=== PATIENT | female | born 1945 | race Caucasian/White ===

== ENCOUNTER 2018-11-28 00:29 | Outpatient (CLI) | payer MEDICARE, OTHER, SELFPAY ==
--- NOTE | 2018-11-28 11:46 | DI.MAMMO_ITS ---
SYMPTOM/DIAGNOSIS: SCREENING Z13=2.31 MAMMOGRAMS: Mammograms were interpreted according to the usual protocol including computer analysis with CAD system, tomosynthesis and C view imaging. Comparison with prior examinations. Breast density category C. No suspicious masses or microcalcifications are seen. There is no definite evidence of malignancy. IMPRESSION: Category 1, negative mammogram. Routine screening is recommended. Breast density category C. MQSA ASSESSMENT OF FINDINGS: Negative. Category 1. Patient will receive a letter notifying them of these results. Bi-RADS category C. The breasts are heterogeneously dense, which may obscure small masses.
== END 2018-11-28 00:49 ==
PROVIDERS: PCP Family Medicine; Visit Provider Internal Medicine
DX: Z12.31 Encounter for screening mammogram for malignant neoplasm of breast (principal)
CPT/HCPCS: 77063; 77067

== ENCOUNTER 2020-03-13 01:47 | Outpatient (CLI) | payer MEDICARE, OTHER, SELFPAY ==
--- NOTE | 2020-03-13 | DI.MAMMO_ITS ---
EXAM: MG MAMMO SCREENING CLINICAL HISTORY: SCREENING,Z12.31 TECHNIQUE: Bilateral full field digital CC and MLO mammographic images were obtained with 3D tomosyn thesis and utilizing computer aided detection (CAD). COMPARISON: Available for comparison. FINDINGS: Masses/Architectural Distortion: There is a focal asymmetric density in the upper central right breas t on the MLO view. Microcalcifications: No suspicious pleomorphic-type are seen. Skin Thickening/Nipple Retraction: None. IMPRESSION: 1. Asymmetric density in the upper central right breast on the MLO view. 2. Further evaluation with additional views of the right breast and ultrasound are recommended for fu rther evaluation. BI-RADS Category 0 - Assessment Incomplete: Need additional imaging evaluation Breast Density - Category C - Heterogeneously dense The mammogram demonstrates the patient's breast tissue is dense. Dense breast tissue is very common a nd is not abnormal but dense breast tissue can make it harder to find cancer on a mammogram. Also, de nse breast tissue may increase their breast cancer risk. This information about the result of the [facility] mogram report was provided to the patient to raise their awareness. Use this report when you speak wi th the patient about their risks for breast cancer, which includes their family history. At that time , you may recommend for more screening tests (Ultrasound or MRI) as they might be useful based on the ir risk. A negative radiographic report should not delay biopsy if a dominant or clinically suspicious mass is present. Up to ten percent of cancers are not identified on mammography. A negative report may reinforce clinical impression. Adenosis and dense breasts may obscure an underlying neoplasm. False positive reports average 6 to 10%. Patient will receive a letter notifying them of these results.
== END 2020-03-13 02:07 ==
PROVIDERS: PCP Family Medicine; Visit Provider Internal Medicine
DX: Z12.31 Encounter for screening mammogram for malignant neoplasm of breast (principal); R92.8 Other abnormal and inconclusive findings on diagnostic imaging of breast
CPT/HCPCS: 77063; 77067

== ENCOUNTER 2020-03-15 03:27 | Outpatient (CLI) | payer MEDICARE, OTHER, SELFPAY ==
--- NOTE | 2020-03-15 | DI.US_ITS ---
EXAM: MG MAMMO SCREEN CALL BACK UNI and U/S breast RT leg CLINICAL HISTORY: F/U MAMMO,FOCAL ASYMMETRIC DENSITY UPPER [place] RT BREAST ON MLO. TECHNIQUE: Craniocaudal and mediolateral oblique Full Field Digital Mammography views of the right b reast with Computer Aided Diagnosis followed by Tomosynthesis and right breast ultrasound. COMPARISON: Priors available for comparison. FINDINGS: Mammography/Tomosynthesis: Masses/Architectural Distortion: None seen. Microcalcifictions: No suspicious pleomorphic-type are seen. Skin Thickening/Nipple Retraction: None. Right breast US: Echotexture: Normal appearance of the glandular tissue. Shadowing: No suspicious foci. Cyst: None. Solid lesions: None seen. Ductal dilation: None. IMPRESSION: 1. No evidence of malignancy is noted. 2. A six-month follow-up right mammogram is requested for re-evaluation. 3. The findings were discussed with the patient on the date of the examination. BI-RADS Category 3 - 6 month - Probably Benign Finding: Recommend follow-up mammography in 6 months Breast Density - Category C - Heterogeneously dense The mammogram demonstrates the patient's breast tissue is dense. Dense breast tissue is very common a nd is not abnormal but dense breast tissue can make it harder to find cancer on a mammogram. Also, de nse breast tissue may increase their breast cancer risk. [facility] was provided to the patient to raise their awareness. Use this report when you speak wi th the patient about their risks for breast cancer, which includes their family history. At that time , you may recommend for more screening tests (Ultrasound or MRI) as they might be useful based on the ir risk. A negative radiographic report should not delay biopsy if a dominant or clinically suspicious mass is present. Up to ten percent of cancers are not identified on mammography. A negative report may reinforce clinical impression. Adenosis and dense breasts may obscure an underlying neoplasm. False positive reports average 6 to 10%. Patient will receive a letter notifying them of these results.
== END 2020-03-15 03:47 ==
PROVIDERS: PCP Family Medicine; Visit Provider Internal Medicine
DX: R92.8 Other abnormal and inconclusive findings on diagnostic imaging of breast (principal); R92.2 Inconclusive mammogram
CPT/HCPCS: 76642; 77063; 77067

== ENCOUNTER → 2020-09-12 13:38 | Outpatient (BNVA) | payer MEDICARE, OTHER, SELFPAY | PROVIDERS: PCP Internal Medicine; Referring Provider Internal Medicine; Visit Provider Psychiatry & Neurology Neurology | DX: G25.0 Essential tremor (principal); M48.061 Spinal stenosis, lumbar region without neurogenic claudication; R41.3 Other amnesia; R29.6 Repeated falls; M54.5 Low back pain; I10 Essential (primary) hypertension; E11.9 Type 2 diabetes mellitus without complications | CPT/HCPCS: 99205; G2212 ==

== ENCOUNTER 2020-09-19 02:00 | Outpatient (CLI) | payer MEDICARE, OTHER, SELFPAY ==
--- NOTE | 2020-09-19 | DI.US_ITS ---
Exam(s) MG MAMMO DIAGNOSTIC UNI US BREAST RT COMPLETE EXAM: MG MAMMO DIAGNOSTIC UNI-RIGHT COMPLETE RIGHT BREAST ULTRASOUND CLINICAL HISTORY: F/U ABNL FINDINGS ON RT BREAST, R92.8. TECHNIQUE: Unilateral spot mammographic images were obtained with 3D Tomosynthesistechnique and util izing computer aided detection (CAD). ALSO COMPLETE RIGHT BREAST ULTRASOUND INCLUDING ALL 4 QUADRANTS WELL THE RETROAREOLAR REGION AN D RIGHT AXILLA COMPARISON: Prior mammograms dating back to 2010, the most recent being MARCH 2020. Ultrasound N 2019 was also reviewed FINDINGS: Today's diagnostic right breast mammogram reveals the previously described nodular density to be less evident. However, 3D imaging today revealed a new 5 x 4 millimeter nodule in the upper inner quadra nt and this persisted on additional spot compression view performed today. We therefore proceeded with complete right breast ultrasound. Complete right breast ultrasound revealed a solitary finding which is at 2 o'clock position and has t he appearance of either a septated microcyst or lymph node measuring 5 x 3 millimeters, most probably corresponding to this new nodule on the mammogram. There are no other focal ultrasound findings in all 4 quadrants nor in the retroareolar region. No significant findings in the right axilla. IMPRESSION: 1. New 5 x 4 mm right breast nodule as described above which appears to be either septated microcyst or benign-appearing lymph node on ultrasound which was performed immediately following today's diagno stic right breast mammogram. Appropriate follow-up is repeat breast ultrasound at time for next mammogram which is in 6 months fro m the present date.. The patient was informed of the findings and follow-up recommendations [facility]. BI-RADS Category 3 - 6 month - Probably Benign Finding: Recommend follow-up mammography and ultrasoun d in 6 months Breast Density - Category B - Scattered areas of fibroglandular density Breast density Category C or D implies that the patient has dense breast tissue. Dense breast tissue can make it harder to find cancer on a mammogram. Dense breast tissue is also associated with an incr eased risk of breast cancer. This information about the result of the mammogram report was provided to the patient to raise their awareness. Use this report when you speak with the patient about their risks for breast cancer, which includes their family history. At that time, you may recommend additional screening tests (Ultrasoun d or MRI) as these tests may add significant information. A negative radiographic report should not delay biopsy if a dominant or clinically suspicious mass is present. Up to ten percent of cancers are not identified on mammography. A negative report may reinforce clinical impression. Adenosis and dense breasts may obscure an underlying neoplasm. False positive reports average 6 to 10%. Patient will receive a letter notifying them of these results.
== END 2020-09-19 02:20 ==
PROVIDERS: PCP Internal Medicine; Visit Provider Internal Medicine
DX: R92.8 Other abnormal and inconclusive findings on diagnostic imaging of breast (principal)
CPT/HCPCS: 76642; 77061; 77065; G0279

== ENCOUNTER → 2020-11-14 12:47 | Outpatient (BNVA) | payer MEDICARE, OTHER, SELFPAY | PROVIDERS: PCP Internal Medicine; Referring Provider Internal Medicine; Visit Provider Psychiatry & Neurology Neurology | DX: R41.3 Other amnesia (principal); G25.0 Essential tremor; R29.6 Repeated falls; M48.061 Spinal stenosis, lumbar region without neurogenic claudication; I10 Essential (primary) hypertension; E78.5 Hyperlipidemia, unspecified; E11.9 Type 2 diabetes mellitus without complications; K21.9 Gastro-esophageal reflux disease without esophagitis; Z87.820 Personal history of traumatic brain injury | CPT/HCPCS: 99215 ==

== ENCOUNTER → 2021-03-20 14:35 | Outpatient (BNVA) | payer MEDICARE, OTHER, SELFPAY | PROVIDERS: PCP Internal Medicine; Visit Provider Psychiatry & Neurology Neurology | DX: R41.3 Other amnesia (principal); R29.6 Repeated falls; M48.061 Spinal stenosis, lumbar region without neurogenic claudication; G25.0 Essential tremor | CPT/HCPCS: 99214 ==

== ENCOUNTER 2021-03-31 00:09 | Outpatient (CLI) | payer MEDICARE, OTHER, SELFPAY ==
--- NOTE | 2021-03-31 13:30 | DI.MAMMO_ITS ---
Exam(s) MAMMO DIAGNOSTIC UNI EXAM: MAMMO DIAGNOSTIC UNI CLINICAL HISTORY: ABNL FINDINGS PRIOR IMAGING R92.8. TECHNIQUE: Unilateral spot mammographic images were obtained with 3D tomosynthesis technique and uti lizing computer aided detection (CAD). COMPARISON: Prior mammograms dating back to 2010, the most recent being March 2020 and the September 19 ultrasound August 2020 was also reviewed. FINDINGS: Previously described density towards the medial aspect of the right breast is unchanged mammographica lly. Ultrasound of the right breast performed following this mammogram today also revealed stable findings . Please see that separate report. IMPRESSION: As above. Appropriate follow-up is to keep this patient yearly mammogram schedule, this implying jazmin t her next bilateral mammogram would be in 6 months from now. The patient was informed of the findings and follow-up recommendations prior to leaving the [facility] today. BI-RADS Category 3 - 6 month - Probably Benign Finding: Recommend follow-up mammography in 6 months Breast Density - Category B - Scattered areas of fibroglandular density Breast density Category C or D implies that the patient has dense breast tissue. Dense breast tissue can make it harder to find cancer on a mammogram. Dense breast tissue is also associated with an incr eased risk of breast cancer. This information about the result of the mammogram report was provided to the patient to raise their awareness. Use this report when you speak with the patient about their risks for breast cancer, which includes their family history. At that time, you may recommend additional screening tests (Ultrasoun d or MRI) as these tests may add significant information. A negative radiographic report should not delay biopsy if a dominant or clinically suspicious mass is present. Up to ten percent of cancers are not identified on mammography. A negative report may reinforce clinical impression. Adenosis and dense breasts may obscure an underlying neoplasm. False positive reports average 6 to 10%. Patient will receive a letter notifying them of these results.
--- NOTE | 2021-03-31 14:00 | DI.US_ITS ---
Exam(s) US BREAST RT COMPLETE EXAM: US BREAST RT COMPLETE CLINICAL HISTORY: ABNL FINDING PRIOR IMAGING R92.8. TECHNIQUE: Complete ultrasound of the right breast was performed including all 4 quadrants, the retr oareolar region, and the ipsilateral axilla. COMPARISON: Prior mammograms were reviewed. Prior ultrasound examination of 09/19/2020 was reviewed. Today's spot compression mammographic views were reviewed FINDINGS: Findings are unchanged. Again noted is the previously described 5 x 4 millimeter finding at the 2 o' clock position which has appearance of either septated microcyst or benign lymph node. This is uncha nged in size and configuration. There are no additional ultrasound findings in all 4 quadrants. No significant ipsilateral right axillary adenopathy. IMPRESSION: Stable 2 o'clock position 5 x 4 millimeter finding, unchanged from 09/19/2020 and either septated jesse rocyst or benign-appearing lymph node on ultrasound. This probably corresponds to the finding on the mammogram. Appropriate follow-up is to keep this patient on a yearly mammogram schedule, this implying that her next bilateral breast imaging would be in 6 months, with earlier imaging if a self detected breast ch mekhi is noted.. BI-RADS Category 3 - 6 month - Probably Benign Finding: Recommend follow-up mammography in 6 months Breast Density - Category B - Scattered areas of fibroglandular density Breast density Category C or D implies that the patient has dense breast tissue. Dense breast tissue can make it harder to find cancer on a mammogram. Dense breast tissue is also associated with an incr eased risk of breast cancer. This information about the result of the mammogram report was provided to the patient to raise their awareness. Use this report when you speak with the patient about their risks for breast cancer, which includes their family history. At that time, you may recommend additional screening tests (Ultrasoun d or MRI) as these tests may add significant information. A negative radiographic report should not delay biopsy if a dominant or clinically suspicious mass is present. Up to ten percent of cancers are not identified on mammography. A negative report may reinforce clinical impression. Adenosis and dense breasts may obscure an underlying neoplasm. False positive reports average 6 to 10%. Patient will receive a letter notifying them of these results.
== END 2021-03-31 00:29 ==
PROVIDERS: PCP Internal Medicine; Visit Provider Internal Medicine
DX: R92.8 Other abnormal and inconclusive findings on diagnostic imaging of breast (principal)
CPT/HCPCS: 76642; 77061; 77065; G0279

== ENCOUNTER → 2021-05-22 12:50 | Outpatient (BNVA) | payer MEDICARE, OTHER, SELFPAY | PROVIDERS: PCP Internal Medicine; Referring Provider Internal Medicine; Visit Provider Psychiatry & Neurology Neurology | DX: R41.3 Other amnesia (principal); R29.6 Repeated falls; M48.061 Spinal stenosis, lumbar region without neurogenic claudication; G25.0 Essential tremor; I10 Essential (primary) hypertension; E11.9 Type 2 diabetes mellitus without complications; R19.7 Diarrhea, unspecified | CPT/HCPCS: 99214 ==

== ENCOUNTER 2021-05-22 14:05 | Emergency (ER) | payer MEDICARE, OTHER, SELFPAY ==
[2021-05-22] VITALS (23 sets, daily range): BP systolic 101–120; BP diastolic 39–80; PULSE 50–65; RESP 10–23; TEMP 36.7; O2SAT 92–98
--- NOTE | 2021-05-22 14:00 | RT.EKG_ITS ---
APPROVED REPORT Exam: Resting ECG Reason for Exam: weakness Patient Location: E HR:51 bpm ECG Measurements Heart Rate 51 AXIS TN 123 P -5 QRSd 83 QRS -15 QT 440 T 4 QTc 405 Conclusion Sinus bradycardia...rate< 60 Low voltage, extremity and precordial leads...extremity<0.5mV, precordial<1.0mV Consider anterior infarct...Q >30mS in V2-V5
--- NOTE | 2021-05-22 14:15 | DI.CT_ITS ---
Exam(s) CT HEAD WO EXAM: CT HEAD WO CLINICAL HISTORY: fall/head injury. TECHNIQUE: Imaging Protocol: Axial computed tomography images with coronal and sagittal reformatted images were created and reviewed COMPARISON: CR XR CHEST 1V IN DI DEPT from 05/22/2021 FINDINGS: There are no skull fractures nor fluid in the visualized paranasal sinuses. There is no evidence of intracranial hemorrhage, mass effect, or shift of midline structures. There are no extra-axial fluid collections. The ventricles are not enlarged or shifted and there is no blo od within the ventricular system nor within the basal cisterns. Mild periventricular white findings consistent with chronic small vessel disease IMPRESSION: No acute intracranial findings on this noninfused CT scan of the brain. No skull fractures. RADIATION DOSE DELIVERED: 736.64mGy.cm Total DLP DATA REPOSITORY: All CT scans at this facility are submitted to the National Radiology Data Registry (NRDR) Dose Index Registry (DIR) with the [employer] ([employer]). RADIATION OPTIMIZATION: All CT scans at this facility use at least one of these dose optimization te chniques: automated exposure control; mA and/or kV adjustment per patient size (includes targeted exa ms where dose is matched to clinical indication); or iterative reconstruction.
--- NOTE | 2021-05-22 14:20 | DI.RAD_ITS ---
Exam(s) XR CHEST 1V IN DI DEPT EXAM: XR CHEST 1V IN DI DEPT CLINICAL HISTORY: weakness. TECHNIQUE: 2D digital imaging was performed. COMPARISON: No exams were available for comparison FINDINGS: Heart size is upper normal. The mediastinum is not widened. Lungs are clear. No infiltrates nor obvious pleural effusions. IMPRESSION: No acute pulmonary findings on this single AP portable view of the chest. DATA REPOSITORY: RADIATION DOSE DELIVERED: All CT scans at this facility use at least one of these dose optimization techniques: automated exposure control; mA and/or kV adjustment per patient size (includes targeted e xams where dose is matched to clinical indication); or iterative reconstruction.
--- NOTE | 2021-05-22 14:24 | ED.GENADUL_ITS ---
Discharge Plan Disposition Patient Disposition: HOME W/HOME HEALTH SERVICE Condition: Stable Discharge Details Clinical Impression: Dehydration, Falls Primary Care Provider: Mal Avery ED Provider: Starla Ricks Home Meds and New Rx's Prescriptions: Continued aspirin [Adult Aspirin Regimen] 81 mg tablet,delayed release (DR/EC) 81 mg PO DAILY RF: 0 lisinopril 10 mg tablet 10 mg PO DAILY RF: 0 gabapentin 300 mg capsule 300 mg PO QHS RF: 0 atorvastatin 10 mg tablet 10 mg PO QHS RF: 0 acetaminophen 500 mg capsule 1,000 mg PO BID PRNRF: 0 divalproex 500 mg tablet,delayed release (DR/EC) 1,000 mg PO BID RF: 0 pantoprazole 40 mg tablet,delayed release (DR/EC) 40 mg PO BID RF: 0 divalproex 250 mg tablet,delayed release (DR/EC) 500 mg PO BID RF: 0 magnesium oxide 400 mg magnesium tablet 400 mg PO QID RF: 0 zinc 50 mg tablet 50 mg PO DAILY RF: 0 B-complex with vitamin C Capsule 1 cap PO DAILY RF: 0 Culturelle 10 billion cell capsule 1 cap PO DAILY RF: 0 cholecalciferol (vitamin D3) 50 mcg (2,000 unit) capsule 50 mcg PO DAILY RF: 0 citalopram [Celexa] 20 mg tablet 20 mg PO DAILY RF: 0 sucralfate [Carafate] 1 gram tablet 1 g PO QACHS RF: 0 nystatin 100,000 unit/mL suspension 5 ml PO QID RF: 0 albuterol sulfate 90 mcg/actuation HFA aerosol inhaler 2 puff inhalation Q4H PRNRF: 0 amlodipine 2.5 mg tablet 2.5 mg PO DAILY RF: 0 calcium carbonate-vitamin D3 600 mg-10 mcg (400 unit) capsule 2 cap PO DAILY RF: 0 Discharge Instructions Instructions: Dehydration (ED) Additional Instructions: you have been referred to home health for nursing evaluation and monitoring, medication oversight. PT/OT for home safety evaluation and management, certified medical biller for routine evaluation and management. drink 6-8 glasses of water daily to stay well hydrated. Referrals: Mal Avery [Primary Care Provider] - Discharge Data Discharge Date/Time-TO BE ENTERED AT DEPARTURE: 05/22/21 17:05 Medical Decision Making <WILSON Gomez - Last Filed: 05/27/21 08:14> 75-year-old female presenting to the ER for hypotension, diarrhea, generalized weakness, fatigue, lack of appetite, concern for dehydration. Upon presentation her blood pressure is 112/39, she does appear slightly dry, afebrile, O2 sat is 94% on room air. Abdomen is soft, nontender. Plan to obtain IV access, give IV fluid, 1 L, obtain head CT given her fall yesterday, stool sample for C. difficile, routine screening laboratory values including a TSH, urine, single troponin and EKG. While the patient was in the radiology department, I had a very candid conversation with her . He works 5 days a week and has concerns of caring for her at home by himself. It sounds as though she does have some home health coming in on Mondays. He is torn whether potential placement to a rehab facility is appropriate versus continuing to care for her at home. I have requested that our care management team come talk with the patient and her to discuss additional options Initial laboratory values reveal a white blood cell count of 2.37 hemoglobin 10.9 hematocrit 33.4 platelet count 82. Unfortunately I do not have any baseline laboratory, but will contact her primary care office to see if we can get some baseline labs. Her electrolytes unremarkable, BUN 45 creatinine 1.9 with a GFR of 25.77. Again do not know the baseline. Patient is receiving 1 L IV fluid. Her glucose is 73. Magnesium 2.5. TSH 1.88. COVID negative Contacted by our radiologist, negative head CT and chest x-ray. Patient receiving 1 L IV fluid. Remains hemodynamically stable. Awaiting urinalysis, stool sample, care management consultation, baseline laboratory values from her primary care provider, and final disposition. Medical Records Medical records reviewed: Yes I reviewed the patient's medical records. Imaging Data Radiologic Study: Attestation: I personally reviewed and interpreted this imaging study as follows: Imaging: CT Scan Radiologist's impression: EXAM: CT HEAD WO CLINICAL HISTORY: fall/head injury. TECHNIQUE: Imaging Protocol: Axial computed tomography images with coronal and sagittal reformatted images were created and reviewed COMPARISON: CR XR CHEST 1V IN DI DEPT from 05/22/2021 FINDINGS: There are no skull fractures nor fluid in the visualized paranasal sinuses. There is no evidence of intracranial hemorrhage, mass effect, or shift of midline structures. There are no extra-axial fluid collections. The ventricles are not enlarged or shifted and there is no blood within the ventricular system nor within the basal cisterns. Mild periventricular white findings consistent with chronic small vessel disease IMPRESSION: No acute intracranial findings on this noninfused CT scan of the brain. No skull fractures. Radiologic Study #2: Attestation: I personally reviewed and interpreted this imaging study as follows: Imaging: X-Ray Radiologist's impression: Exam(s) XR CHEST 1V IN DI DEPT EXAM: XR CHEST 1V IN DI DEPT CLINICAL HISTORY: weakness. TECHNIQUE: 2D digital imaging was performed. COMPARISON: No exams were available for comparison FINDINGS: Heart size is upper normal. The mediastinum is not widened. Lungs are clear. No infiltrates nor obvious pleural effusions. IMPRESSION: No acute pulmonary findings on this single AP portable view of the chest. Lab Data Lab results reviewed: Yes I reviewed the patient's lab results. Labs: Laboratory Tests Range/Units 05/22/21 05/22/21 05/22/21 14:45 14:45 14:45 WBC (4.4-10.8) 10^3/uL 2.37 L RBC (3.93-5.22) 10^6/uL 3.36 L Hgb (11.2-15.7) g/dL 10.9 L Hct (36.0-46.0) % 33.4 L MCV (80-95) fL 99.4 H MCH (27.0-33.0) pg 32.4 MCHC (32.0-36.0) % 32.6 RDW (11.7-14.6) % 12.9 Plt Count (130-400) 10^3/uL 82 L MPV (8.0-11.0) fL 9.4 Immature Gran % 0.4 Neutrophils % 54.1 Lymphocytes % 34.6 Monocytes % 8.4 Eosinophils % 1.7 Basophils % 0.8 Nucleated RBC % % 0 Absolute Neutrophils (1.2-6.7) 10^3/uL 1.28 Absolute Lymphocytes (1.2-3.4) 10^3/uL 0.82 L Absolute Monocytes (0.1-0.8) 10^3/uL 0.20 Absolute Eosinophils (0.0-0.7) 10^3/uL 0.04 Absolute Basophils (0.0-0.2) 10^3/uL 0.02 Sodium (136-145) mmol/L 136 Potassium (3.5-5.1) mmol/L 4.8 Chloride (98-107) mmol/L 99 Carbon Dioxide (21.0-32.0) mmol/L 25.8 Anion Gap (3-11) mmol/L 11.2 H BUN (7-18) mg/dL 45 H Creatinine (0.55-1.02) mg/dL 1.9 H Estimated GFR/1.73 m2 (mL/min/1.73m2) 25.77 Glucose (74-106) mg/dL 73 L Calcium (8.5-10.1) mg/dL 10.0 Magnesium (1.8-2.4) mg/dL 2.5 H Total Bilirubin (0.2-1.0) mg/dL 0.5 AST (15-37) U/L 30 ALT (14-59) U/L 18 Alkaline Phosphatase (46-116) U/L 52 Total Protein (6.4-8.2) g/dL 7.2 Albumin (3.4-5.0) g/dL 3.7 TSH (0.36-3.74) uIU/mL Valproic Acid ( - 150) ug/mL 98.8 COVID-19 Source SARS-CoV-2 (PCR) (Negative) Range/Units 05/22/21 05/22/21 14:45 14:55 WBC (4.4-10.8) 10^3/uL RBC (3.93-5.22) 10^6/uL Hgb (11.2-15.7) g/dL Hct (36.0-46.0) % MCV (80-95) fL MCH (27.0-33.0) pg MCHC (32.0-36.0) % RDW (11.7-14.6) % Plt Count (130-400) 10^3/uL MPV (8.0-11.0) fL Immature Gran % Neutrophils % Lymphocytes % Monocytes % Eosinophils % Basophils % Nucleated RBC % % Absolute Neutrophils (1.2-6.7) 10^3/uL Absolute Lymphocytes (1.2-3.4) 10^3/uL Absolute Monocytes (0.1-0.8) 10^3/uL Absolute Eosinophils (0.0-0.7) 10^3/uL Absolute Basophils (0.0-0.2) 10^3/uL Sodium (136-145) mmol/L Potassium (3.5-5.1) mmol/L Chloride (98-107) mmol/L Carbon Dioxide (21.0-32.0) mmol/L Anion Gap (3-11) mmol/L BUN (7-18) mg/dL Creatinine (0.55-1.02) mg/dL Estimated GFR/1.73 m2 (mL/min/1.73m2) Glucose (74-106) mg/dL Calcium (8.5-10.1) mg/dL Magnesium (1.8-2.4) mg/dL Total Bilirubin (0.2-1.0) mg/dL AST (15-37) U/L ALT (14-59) U/L Alkaline Phosphatase (46-116) U/L Total Protein (6.4-8.2) g/dL Albumin (3.4-5.0) g/dL TSH (0.36-3.74) uIU/mL 1.88 Valproic Acid ( - 150) ug/mL COVID-19 Source Nasal/Nares SARS-CoV-2 (PCR) (Negative) Negative ECG Data Attestation: I personally reviewed and interpreted this ECG (s) as follows: Interpretation: Please see official report by Dr. Mueller. Sinus bradycardia, ventricular rate of 51, no STEMI. <Starla Ricks NP - Last Filed: 05/22/21 18:59> care of patient received and chart reviewed. chart from [facility] reviewed. patient medically screened with no acute medical condition noted that warrants inpatient admission. case management is consulted and referral will be placed for home health services. she should be closely followed by her pcp and is scheduled for colonoscopy. her reports she stools 1+-2 times daily. her blood pressure has been stable during her entire stay, with sbp over 100, HR 50-60's. Medical Records Medical records reviewed: Yes I reviewed the patient's medical records. Medical records narrative: wbc 4.6, hgb 10.9, hct 33.5 plt 91 cre 1.4 tsh 0.75 Lab Data Lab results reviewed: Yes I reviewed the patient's lab results. Lab results narrative: Laboratory Results - last 24 hr 05/22/21 05/22/21 05/22/21 14:45 14:45 14:45 WBC 2.37 L RBC 3.36 L Hgb 10.9 L Hct 33.4 L MCV 99.4 H MCH 32.4 MCHC 32.6 RDW 12.9 Plt Count 82 L MPV 9.4 Immature Gran % 0.4 Neutrophils % 54.1 Lymphocytes % 34.6 Monocytes % 8.4 Eosinophils % 1.7 Basophils % 0.8 Nucleated RBC % 0 Absolute Neutrophils 1.28 Absolute Lymphocytes 0.82 L Absolute Monocytes 0.20 Absolute Eosinophils 0.04 Absolute Basophils 0.02 Sodium 136 Potassium 4.8 Chloride 99 Carbon Dioxide 25.8 Anion Gap 11.2 H BUN 45 H Creatinine 1.9 H Estimated GFR/1.73 m2 25.77 Glucose 73 L Calcium 10.0 Magnesium 2.5 H Total Bilirubin 0.5 AST 30 ALT 18 Alkaline Phosphatase 52 Troponin I Total Protein 7.2 Albumin 3.7 TSH Valproic Acid 98.8 COVID-19 Source SARS-CoV-2 (PCR) 05/22/21 05/22/21 05/22/21 14:45 14:45 14:55 WBC RBC Hgb Hct MCV MCH MCHC RDW Plt Count MPV Immature Gran % Neutrophils % Lymphocytes % Monocytes % Eosinophils % Basophils % Nucleated RBC % Absolute Neutrophils Absolute Lymphocytes Absolute Monocytes Absolute Eosinophils Absolute Basophils Sodium Potassium Chloride Carbon Dioxide Anion Gap BUN Creatinine Estimated GFR/1.73 m2 Glucose Calcium Magnesium Total Bilirubin AST ALT Alkaline Phosphatase Troponin I < 50 Total Protein Albumin TSH 1.88 Valproic Acid COVID-19 Source Nasal/Nares SARS-CoV-2 (PCR) Negative HPI <WILSON Gomez - Last Filed: 05/27/21 08:14> General Mode of arrival: wheelchair . Date/Time Provider Initiated Documentation: 05/22/21 14:06 . Limitations to Documentation: altered mental status (baseline dementia) . Information obtained by: patient and family . HPI Narrative: This is a 75-year-old female who presents with her , past medical history of diabetes, anemia, dementia, depression, hypertension, subarachnoid hemorrhage, asthma, GERD, osteoarthritis, recurrent falls, essential tremor, not anticoagu lated, presenting to the ER for evaluation of generalized weakness, decreased appetite, fatigue, diarrhea increasing over the last month. Patient was seen at the ER at [facility] yesterday, reports having had a CAT scan but no laboratory values or IV fluid which they feel as though she requires. I was able to review the CT, there is an area of focal thickening of the wall of the cecum, recommended outpatient colonoscopy. Family did contact the your surgical team today. Patient currently denies any pain, headache, fever, chest pain, short of breath, abdominal pain, nausea, vomiting, black tarry stools or bright red blood in her stools, dysuria, hematuria, focal weakness. She is fully vaccinated with a booster against COVID. Patient went to her outpatient neurology appointment today, blood pressures noted to be 80s over 40s, given her generalized weakness, blood pressure, concern for dehydration, sent to the ER for further evaluation. Patient does have frequent falls, apparently last night fell backwards striking the back of her head but denies LOC, headache, neck pain. Patient states that she is a full code, confirmed by her . Related Data Home Medications Medication Instructions Recorded Confirmed albuterol sulfate 90 mcg/actuation 2 puff INHALATION Q4H PRN g 05/16/20 05/22/21 aerosol inhaler amlodipine 2.5 mg tablet 2.5 mg PO DAILY 05/16/20 05/22/21 acetaminophen 500 mg capsule 1,000 mg PO BID PRN cap 09/12/20 05/22/21 aspirin 81 mg tablet,delayed 81 mg PO DAILY 09/12/20 05/22/21 release atorvastatin 10 mg tablet 10 mg PO QHS 09/12/20 05/22/21 gabapentin 300 mg capsule 300 mg PO QHS 09/12/20 05/22/21 lisinopril 10 mg tablet 10 mg PO DAILY 09/12/20 05/22/21 divalproex 500 mg tablet,delayed 1,000 mg PO BID 11/14/20 05/22/21 release pantoprazole 40 mg tablet,delayed 40 mg PO BID tab 03/20/21 05/22/21 release B-complex with vitamin C 1 cap PO DAILY 05/22/21 05/22/21 Lactobacillus rhamnosus GG 10 1 cap PO DAILY 05/22/21 05/22/21 billion cell capsule calcium carbonate 600 mg-vitamin 2 cap PO DAILY cap 05/22/21 05/22/21 D3 10 mcg (400 unit) capsule cholecalciferol (vitamin D3) 50 50 mcg PO DAILY cap 05/22/21 05/22/21 mcg (2,000 unit) capsule citalopram 20 mg tablet 20 mg PO DAILY 05/22/21 05/22/21 divalproex 250 mg tablet,delayed 500 mg PO BID tab 05/22/21 05/22/21 release magnesium oxide 400 mg PO QID tab 05/22/21 05/22/21 nystatin 100,000 unit/mL oral 5 ml PO QID ml 05/22/21 05/22/21 suspension sucralfate 1 gram tablet 1 g PO QACHS tab 05/22/21 05/22/21 zinc 50 mg tablet 50 mg PO DAILY 05/22/21 05/22/21 Allergies Allergy/AdvReac Type Severity Reaction Status Date / Time animal dander Allergy Verified 05/22/21 14:18 codeine Allergy Verified 05/22/21 14:18 grass pollen Allergy Verified 05/22/21 14:18 perfume Allergy Verified 05/22/21 14:18 General Stated Complaint: Nausea/Vomit/Diar ASIA: 3 Review of Systems <WILSON Gomez - Last Filed: 05/27/21 08:14> Constitutional Constitutional: Reports fatigue, Denies fever(s) and Denies headache(s) Eyes Eyes: Denies change in vision ENT Ears, Nose, Mouth, and Throat: Denies headache(s) and Denies neck pain Cardiovascular Cardiovascular: Denies chest pain and Denies dyspnea Respiratory Respiratory: Denies cough and Denies dyspnea Gastrointestinal Gastrointestinal: Denies abdominal pain, Denies melena, Denies hematochezia, Reports diarrhea, Denies nausea and Denies vomiting Genitourinary Genitourinary: Denies dysuria Musculoskeletal Musculoskeletal: Denies back pain and Denies neck pain Integumentary/Breasts Skin/Breast: Denies rash Neurologic Neurologic: Denies headache(s) and Reports weakness (Generalized) Endocrine Endocrine: Reports fatigue Hematologic/Lymphatic Hematologic/Lymphatic: Denies easy bleeding and Denies easy bruising PFS <WILSON Gomez - Last Filed: 05/27/21 08:14> All Active Problems (Updated 05/22/21 @ 16:41 by Starla Ricks NP) Dehydration (Acute) Falls (Acute) Essential tremor (Acute) Lumbar stenosis (Acute) Frequent falls (Acute) Memory loss (Acute) Medical History Anemia Asthma Depressive disorder Diastasis recti GERD (gastroesophageal reflux disease) Hypertension Hypertriglyceridemia 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 Osteoarthritis Osteopenia Recurrent falls while walking Subarachnoid hemorrhage Type 2 diabetes mellitus Surgical History H/O bladder repair surgery H/O hernia repair H/O total knee replacement H/O tubal ligation History of esophagogastroduodenoscopy (EGD) Hx of colonoscopy Family History Father Alcohol abuse Heart disease Mother Cervical cancer Brother Prostate cancer Bladder cancer Kidney disease COPD (chronic obstructive pulmonary disease) Heart disease Mesothelioma Daughter Ovarian cancer Sister Alcohol abuse COPD (chronic obstructive pulmonary disease) Arthritis Kidney disease Osteoporosis Social History Smoking/Tobacco Use Status: Former Tobacco Use Smoking risk assessment performed?: Yes Alcohol Intake: never Details: OCCASTIONAL 1 PER YEAR Drug use: Never Household members: spouse Number of Children: 2 current occupation: Homemaker Do you feel safe at home: Yes Do you feel safe in your relationship?: Yes Exam <WILSON Gomez - Last Filed: 05/27/21 08:14> Const General: cooperative, healthy appearing, comfortable and no acute distress Orientation: alert, awake, oriented to person and oriented to place [facility] Head: normal to inspection, normocephalic and atraumatic Face and sinus: normal facial exam Mouth: moist mucous membranes abnormal (dry) Eyes General: appearance normal, both eyes and all related structures Alignment and Position: alignment normal Periorbital: periorbital findings normal Eyelids: eyelids normal Conjunctivae: conjunctivae normal Cornea: corneas normal Pupils: PERRL EOM: EOM intact bilaterally Direct ophthalmoscopy: normal light reflex Neck Neck: normal visual inspection, full ROM, trachea midline, supple and nontender Resp Effort & Inspection: normal respiratory effort and able to speak in complete sen tences Auscultation: clear to auscultation bilaterally Cardio Rate: regular rate and bradycardic (56) Rhythm: regular rhythm GI Inspection: normal to inspection Palpation: soft, not firm, no guarding and nontender Auscultation: normal bowel sounds Back/Spine/Pelvis Back: No back tenderness Skin General skin exam: no rashes or lesions noted Neuro General: patient alert, patient awake, moves all extremities, no focal motor deficits and other (Essential tremor noted) Cranial Nerves: CN's II-XI intact bilaterally Cognition: normal cognition Speech: speech normal Motor: muscle tone normal throughout and strength 5/5 throughout Sensory Exam: no sensory deficits noted Extrem General: normal to inspection, full ROM, capillary refill normal, no pedal edema and no calf tenderness Psych Appearance: grossly normal Mental Status: mental status grossly normal Course <WILSON Gomez - Last Filed: 05/27/21 08:14> Vital Signs Vital signs: Vital Signs Temperature 36.7 C 05/22/21 14:11 Pulse 57 L 05/22/21 14:11 Respiratory Rate 16 05/22/21 14:11 Blood Pressure 112/39 L 05/22/21 14:11 Pulse Oximetry 94 05/22/21 14:11 Temperature 36.7 C 05/22/21 14:11 Temperature Source Temporal Artery Scan 05/22/21 14:11 Pulse 57 L 05/22/21 14:11 Respiratory Rate 16 05/22/21 14:11 Respiratory Effort Non-Labored 05/22/21 14:19 Blood Pressure 112/39 L 05/22/21 14:11 Blood Pressure Position Sitting 05/22/21 14:11 Pulse Oximetry 94 05/22/21 14:11 Oxygen Delivery Method Room Air 05/22/21 14:11 Oxygen Flow Rate 0 05/22/21 14:11 Sign Out <WILSON Gomez - Last Filed: 05/27/21 08:14> Sign Out Data: Sign Out Comment: Awaiting care management consultation, baseline laboratory values from primary care office, troponin, urinalysis, stool sample, final disposition Last updated by Mike Irwin PA at 05/22/21 15:50
[2021-05-22] MEDS: Normal Saline 1,000 ML 1000 ML IV ×2 (14:47→16:23)
[2021-05-22 14:55] LABS: Abs Immature Grans 0.01 10^3/uL (0.0-0.06); Absolute Basophil Count 0.02 10^3/uL (0.0-0.2); Absolute Eosinophil Count 0.04 10^3/uL (0.0-0.7); Absolute Lymphocyte Count 0.82 10^3/uL (1.2-3.4); Absolute Neutrophil Count 1.28 10^3/uL (1.2-6.7); Basophils % 0.8; Eosinophils % 1.7; HCT 33.4 % (36.0-46.0); HGB 10.9 g/dL (11.2-15.7); Immature Grans % 0.4; Lymphocytes % 34.6; MCH 32.4 pg (27.0-33.0); MCHC 32.6 % (32.0-36.0); MCV 99.4 fL (80-95); MPV 9.4 fL (8.0-11.0); Monocytes % 8.4; Neutrophils % 54.1; Nucleated RBC 0 %; RBC 3.36 10^6/uL (3.93-5.22); RDW 12.9 % (11.7-14.6); RDW-SD 47.6 fL; WBC 2.37 10^3/uL (4.4-10.8)
[2021-05-22 14:58] LABS: Source Nasal/Nares
[2021-05-22 15:09] LABS: Platelet Count 82 10^3/uL (130-400)
[2021-05-22 15:10] LABS: ALT 18 U/L (14-59); AST 30 U/L (15-37); Albumin 3.7 g/dL (3.4-5.0); Alkaline Phosphatase 52 U/L (46-116); Anion Gap 11.2 mmol/L (3-11); BUN 45 mg/dL (7-18); Bilirubin, Total 0.5 mg/dL (0.2-1.0); CO2 25.8 mmol/L (21.0-32.0); CREATININE 1.9 mg/dL (0.55-1.02); Chloride 99 mmol/L (98-107); Estimated GFR 25.77 (mL/min/1.73m2); Glucose 73 mg/dL (74-106); Magnesium 2.5 mg/dL (1.8-2.4); Potassium 4.8 mmol/L (3.5-5.1); Sodium 136 mmol/L (136-145); Total Protein 7.2 g/dL (6.4-8.2)
[2021-05-22 15:17] LABS: VALPROIC ACID 98.8 ug/mL
[2021-05-22 15:20] LABS: TSH (W/Ref FT4) 1.88 uIU/mL (0.36-3.74)
[2021-05-22 15:38] LABS: COVID-19 PCR Negative (Negative)
[2021-05-22 16:06] LABS: Troponin I < 50 ng/L (<or=60)
--- NOTE | 2021-05-22 17:04 | PDOC.ERCMPRO ---
- If Service Date Differs Date of service: 05/22/21 Time of Service: 17:04 Care Management Progress Note S/O: At the request of ED provider, ELISEO meets with Jenae and her , Dax. Jenae reports that she is struggling to manage at home due to being extremely fatigued and having diarrhea for approximately a month now. Her states she is not eating much of anything and he is concerned for her wellbeing. Dax is employed full-time and Jenae is home alone during the week. Jenae has some cognitive impairment and memory deficits. She has also fallen on numerous occasions. An aide from [employer], KENNEDI comes to the home on Mondays for a couple of hours and their daughter, Liz, checks in on Jenae and puts her medication in weekly medication organizer trays. The couple expresses an interest in short-term rehab. ELISEO discusses with them that Jenae would require a qualifying inpatient stay in order for her insurance to pay for rehab or they would need to pay for her stay out of pocket, which is not currently a feasible option for them. A: Jenae is a 75-year-old female who presents in the ED for dehydration and falls. P: Jenae is returning home with her . A referral for Home Health RN, PT, OT, and ACADEMIC DEPARTMENT CHAIR is faxed to [facility]. Jenae is transported home by her via private vehicle.
== END 2021-05-22 17:05 | disposition home health service (06) ==
PROVIDERS: Physician Assistant; Emergency Provider Nurse Practitioner Acute Care; PCP Internal Medicine
DX: E86.0 Dehydration (principal); R19.7 Diarrhea, unspecified; R53.1 Weakness; R29.6 Repeated falls; I95.9 Hypotension, unspecified
CPT/HCPCS: 36415; 80053; 87635; 93005; 96360; 96361; 99214; 99285; 70450; 71045; 80164; 83735; 84443; 84484; 85025; 93010; 99284

== ENCOUNTER → 2021-07-17 07:46 | Outpatient (BNVA) | payer MEDICARE, OTHER, SELFPAY | PROVIDERS: PCP Internal Medicine; Referring Provider Internal Medicine; Visit Provider Psychiatry & Neurology Neurology | DX: F03.90 Unspecified dementia, unspecified severity, without behavioral disturbance, psychotic disturbance, mood disturbance, and anxiety (principal); Z87.820 Personal history of traumatic brain injury; F39 Unspecified mood [affective] disorder; R29.6 Repeated falls; M48.061 Spinal stenosis, lumbar region without neurogenic claudication; G25.0 Essential tremor | CPT/HCPCS: 99443 ==

== ENCOUNTER → 2021-08-28 07:18 | Outpatient (BNVA) | payer MEDICARE, OTHER, SELFPAY | PROVIDERS: PCP Internal Medicine; Referring Provider Internal Medicine; Visit Provider Psychiatry & Neurology Neurology | DX: Z79.82 Long term (current) use of aspirin (principal); I10 Essential (primary) hypertension; E11.319 Type 2 diabetes mellitus with unspecified diabetic retinopathy without macular edema; R41.3 Other amnesia; R29.6 Repeated falls; M48.061 Spinal stenosis, lumbar region without neurogenic claudication; G25.0 Essential tremor | CPT/HCPCS: 99443 ==

== ENCOUNTER → 2021-11-06 01:28 | Outpatient (CLI) | payer MEDICARE, OTHER, SELFPAY ==
--- NOTE | 2021-11-06 13:48 | DI.MAMMO_ITS ---
Exam(s) MAMMO DIAGNOSTIC BI EXAM: MAMMO DIAGNOSTIC BI CLINICAL HISTORY: RT BREAST DENSITY, DUE FOR AUDREY, OTHER ABNL/INCONCLUSIVE FINDING, R92.8. TECHNIQUE: Unilateral spot mammographic images were obtained with 3D tomosynthesis technique and uti lizing computer aided detection (CAD). COMPARISON: Prior mammograms dating back to 2011 were reviewed, the most recent being March 2021. Prior ultrasound also reviewed. FINDINGS: There has been no significant change in appearance and distribution of fibroglandular tissue. There are no new spiculated masses. Numerous benign-appearing microcalcifications are again noted in both breasts, including a calcified small nodule posteriorly in the right breast. However, there ar e no new malignant-appearing microcalcification groups in either breast. No new significant architectural distortion or skin thickening-retraction IMPRESSION: No radiographic evidence of malignancy Stable benign-appearing findings . The patient was informed of the findings and follow-up recommendations prior to leaving the [facility]. BI-RADS Category 2 - Benign Findings Breast Density - Category B - Scattered areas of fibroglandular density Breast density Category C or D implies that the patient has dense breast tissue. Dense breast tissue can make it harder to find cancer on a mammogram. Dense breast tissue is also associated with an incr eased risk of breast cancer. This information about the result of the mammogram report was provided to the patient to raise their awareness. Use this report when you speak with the patient about their risks for breast cancer, which includes their family history. At that time, you may recommend additional screening tests (Ultrasoun d or MRI) as these tests may add significant information. A negative radiographic report should not delay biopsy if a dominant or clinically suspicious mass is present. Up to ten percent of cancers are not identified on mammography. A negative report may reinforce clinical impression. Adenosis and dense breasts may obscure an underlying neoplasm. False positive reports average 6 to 10%. Patient will receive a letter notifying them of these results.
== END ==
PROVIDERS: PCP Internal Medicine; Visit Provider Internal Medicine
DX: R92.8 Other abnormal and inconclusive findings on diagnostic imaging of breast (principal)
CPT/HCPCS: 77062; 77066; G0279

== ENCOUNTER → 2021-11-27 11:06 | Outpatient (BNVA) | payer MEDICARE, OTHER, SELFPAY | PROVIDERS: PCP Internal Medicine; Referring Provider Internal Medicine; Visit Provider Psychiatry & Neurology Neurology | DX: Z79.82 Long term (current) use of aspirin (principal); Z87.820 Personal history of traumatic brain injury; F39 Unspecified mood [affective] disorder; R41.3 Other amnesia; R29.6 Repeated falls; M48.061 Spinal stenosis, lumbar region without neurogenic claudication; G25.0 Essential tremor | CPT/HCPCS: 99214 ==

== ENCOUNTER → 2022-02-26 10:56 | Outpatient (BNVA) | payer MEDICARE, OTHER, SELFPAY | PROVIDERS: PCP Internal Medicine; Referring Provider Internal Medicine; Visit Provider Psychiatry & Neurology Neurology | DX: R29.6 Repeated falls (principal); Z87.820 Personal history of traumatic brain injury; R41.3 Other amnesia; F32.A Depression, unspecified; Z79.82 Long term (current) use of aspirin; M48.061 Spinal stenosis, lumbar region without neurogenic claudication; G25.0 Essential tremor; I10 Essential (primary) hypertension; E11.319 Type 2 diabetes mellitus with unspecified diabetic retinopathy without macular edema | CPT/HCPCS: 99215 ==

== ENCOUNTER 2022-05-05 13:44 | Emergency (ER) | payer MEDICARE, SELFPAY ==
[2022-05-05] VITALS (16 sets, daily range): BP systolic 92–128; BP diastolic 52–80; PULSE 47–63; RESP 16–18; TEMP 36.8; O2SAT 95–100
--- NOTE | 2022-05-05 14:15 | DI.CT_ITS ---
Exam(s) CT HEAD WO EXAM: CT HEAD WO CLINICAL HISTORY: weakness. TECHNIQUE: Imaging Protocol: Axial computed tomography images with coronal and sagittal reformatted images were created and reviewed COMPARISON: CT CT HEAD WO from 05/22/2021 FINDINGS: There are no skull fractures. There is no fluid in the visualized paranasal sinuses. There is no evidence of intracranial hemorrhage, mass effect, or shift of midline structures. There are no extra-axial fluid collections. The ventricles are not enlarged or shifted and there is no blo od within the ventricular system nor within the basal cisterns. There is mild periventricular hypodensity again noted consistent with chronic small vessel disease. No acute territorial infarct noted. IMPRESSION: No acute intracranial findings on this noninfused CT scan of the brain. Called by myself to ER provider. RADIATION DOSE DELIVERED: 651.31mGy.cm Total DLP DATA REPOSITORY: All CT scans at this facility are submitted to the National Radiology Data Registry (NRDR) Dose Index Registry (DIR) with the [employer] (A[employer]). RADIATION OPTIMIZATION: All CT scans at this facility use at least one of these dose optimization te chniques: automated exposure control; mA and/or kV adjustment per patient size (includes targeted exa ms where dose is matched to clinical indication); or iterative reconstruction.
[2022-05-05 14:45] LABS: Abs Immature Grans 0.01 10^3/uL (0.0-0.06); Absolute Basophil Count 0.02 10^3/uL (0.0-0.2); Absolute Eosinophil Count 0.08 10^3/uL (0.0-0.7); Absolute Lymphocyte Count 1.16 10^3/uL (1.2-3.4); Absolute Monocyte Count 0.36 10^3/uL (0.1-0.8); Absolute Neutrophil Count 1.61 10^3/uL (1.2-6.7); Basophils % 0.6; Eosinophils % 2.5; HCT 25.8 % (36.0-46.0); HGB 8.7 g/dL (11.2-15.7); Immature Grans % 0.3; Lymphocytes % 35.8; MCH 33.5 pg (27.0-33.0); MCHC 33.7 % (32.0-36.0); MCV 99 fL (80-95); MPV 9.4 fL (8.0-11.0); Monocytes % 11.1; Neutrophils % 49.7; Platelet Count 85 10^3/uL (130-400); RDW 13.3 % (11.7-14.6); RDW-SD 47.3 fL; WBC 3.24 10^3/uL (4.4-10.8)
[2022-05-05 14:59] LABS: ALT 7 U/L (14-59); AST 10 U/L (15-37); Alkaline Phosphatase 32 U/L (46-116); Anion Gap 7.1 mmol/L (3-11); BUN 30 mg/dL (7-18); Bilirubin, Total 0.6 mg/dL (0.2-1.0); CO2 25.9 mmol/L (21.0-32.0); CREATININE 1.5 mg/dL (0.55-1.02); Calcium 9.2 mg/dL (8.5-10.1); Chloride 109 mmol/L (98-107); Estimated GFR 35.89 (mL/min/1.73m2); Glucose 84 mg/dL (74-106); Magnesium 1.4 mg/dL (1.8-2.4); Potassium 4.4 mmol/L (3.5-5.1); Sodium 142 mmol/L (136-145); Total Protein 5.8 g/dL (6.4-8.2)
[2022-05-05] MEDS: Normal Saline 250 ML IV (15:02)
[2022-05-05] MEDS: Magnesium Oxide 400 MG TAB PO (15:58)
[2022-05-05 16:03] LABS: Bilirubin Negative (Negative); Blood Negative (Negative); Clarity Clear (Clear); Glucose Negative (Negative); Ketones Negative (Negative); Leukocyte Esterase Negative (Negative); Nitrite Negative (Negative); pH 7.5 (5-8)
--- NOTE | 2022-05-05 16:03 | W.ED.GENAD ---
Discharge Plan Disposition Patient Disposition: Home Condition: Stable Discharge Details Clinical Impression: Decreased appetite, Weakness, Anemia Primary Care Provider: Edward Francis ED Provider: Mike Irwin Home Meds and New Rx's Prescriptions: New mirtazapine 7.5 mg tablet 7.5 mg PO DAILY Qty: 14 0RF Continued divalproex 500 mg tablet,delayed release (DR/EC) 500 mg PO BID aspirin [Adult Aspirin Regimen] 81 mg tablet,delayed release (DR/EC) 81 mg PO DAILY lisinopril 10 mg tablet 10 mg PO DAILY atorvastatin 10 mg tablet 10 mg PO QHS pantoprazole 40 mg tablet,delayed release (DR/EC) 40 mg PO DAILY divalproex 250 mg tablet,delayed release (DR/EC) 250 mg PO BID cholecalciferol (vitamin D3) 50 mcg (2,000 unit) capsule 50 mcg PO DAILY loratadine [Allergy Relief (loratadine)] 10 mg tablet 10 mg PO DAILY lidocaine 5 % cream 1 applic topical QID PRN (Reason: pain in low back and left leg) Qty: 30 5RF memantine 10 mg tablet 10 mg PO BID Qty: 180 3RF calcium carbonate-vitamin D3 600 mg-10 mcg (400 unit) capsule 2 cap PO DAILY folic acid 1 mg tablet 1 mg PO DAILY fluticasone propionate [Allergy Relief (fluticasone)] 50 mcg/actuation spray,suspension 1 spray intranasal BID PRN Rx Instructions: administer into each nostril citalopram [Celexa] 20 mg tablet 10 mg PO DAILY Discharge Instructions Instructions: Weakness (ED), Anemia (ED) Additional Instructions: Mirtazapine as directed. Plenty of fluids to avoid dehydration. Please watch for new or worsening symptoms and return to the ER for any concerns. I do recommend reaching out to your PCP and your neurologist to discuss your ER visit and need for outpatient reevaluation. We also discussed that you do have anemia today and this needs to be monitored, outpatient work-up including colonoscopy may be indicated. Discharge Data Discharge Date/Time-TO BE ENTERED AT DEPARTURE: 05/05/22 18:35 Medical Decision Making <Teddy Vitale NP - Last Filed: 05/06/22 10:00> Patient presenting to the emergency department for chief complaint of not feeling well and generalized weakness. Patient's states baseline dementia and patient is alert and oriented to person but otherwise does state general confusion. She states chronic leg pain but no new injury or trauma, no falls. Patient was seen at [facility] and diagnosed with UTI and was placed on antibiotics recently but patient has not been improving. does endorse that patient is not eating and drinking and is having near falls at home. denies any known injury or trauma that is occurred. Physical exam is unremarkable and shows no obvious traumatic findings, no specific pain, normal exam. We will plan on checking labs and repeat urinalysis given recent UTI and concern for electrolyte abnormality. Given generalized weakness will perform head CT just to ensure there was not an unknown or unwitnessed fall. Pending results will give IV fluids given that patient is not eating and drinking. Reviewed labs and patient does have some findings of anemia no obvious leukocytosis or shift, CMP does show a elevated chloride, BUN of 30, creatinine 1.5 with GFR 35. These are similar to what we have noted in the past. Magnesium is low at 1.4 so we will order patient p.o. magnesium. AST ALT alk phos total protein and albumin are all low. Patient still pending urinalysis and CT imaging. Did speak with Dr. Monahan who is familiar with patient. She states that this sounds familiar to patient's previous presentations where she has issues with diet and oral intake. She states that patient has previously been on mirtazapine which has helped patient gain weight and with generalized weakness. Will restart patient on mirtazapine 7.5 mg tablet. <WILSON Gomez - Last Filed: 05/05/22 20:25> Patient presenting to the emergency department for chief complaint of not feeling well and generalized weakness. Patient's states baseline dementia and patient is alert and oriented to person but otherwise does state general confusion. She states chronic leg pain but no new injury or trauma, no falls. Patient was seen at [facility] and diagnosed with UTI and was placed on antibiotics recently but patient has not been improving. does endorse that patient is not eating and drinking and is having near falls at home. denies any known injury or trauma that is occurred. Physical exam is unremarkable and shows no obvious traumatic findings, no specific pain, normal exam. We will plan on checking labs and repeat urinalysis given recent UTI and concern for electrolyte abnormality. Given generalized weakness will perform head CT just to ensure there was not an unknown or unwitnessed fall. Pending results will give IV fluids given that patient is not eating and drinking. Reviewed labs and patient does have some findings of anemia no obvious leukocytosis or shift, CMP does show a elevated chloride, BUN of 30, creatinine 1.5 with GFR 35. These are similar to what we have noted in the past. Magnesium is low at 1.4 so we will order patient p.o. magnesium. AST ALT alk phos total protein and albumin are all low. Patient still pending urinalysis and CT imaging. Did speak with Dr. Monahan who is familiar with patient. She states that this sounds familiar to patient's previous presentations where she has issues with diet and oral intake. She states that patient has previously been on mirtazapine which has helped patient gain weight and with generalized weakness. Will restart patient on mirtazapine 7.5 mg tablet. 1530: Mike Irwin I assumed care of this 76-year-old female from my colleague, ROHAN Vitale, please see his initial HPI and examination. At time of signout awaiting urinalysis and CT of the head. Laboratory values did reveal anemia, patient denies any bleeding. Patient appears well, nontoxic. Was able to tolerate her p.o. magnesium without difficulty. She denies any pain whatsoever. States that she has had similar symptoms previously. Urinalysis reveals no signs of infection. Head CT unremarkable. Patient is awake, alert, ambulatory without difficulty, stable on her feet. Neurologically intact. She was able to tolerate p.o. intake without difficulty. She has no additional questions or concerns and is comfortable being discharged in her current condition. Her is comfortable taking her home in her current condition. Per the recommendations of Dr. Monahan after speaking with ROHAN Vitale, we will initiate her mirtazapine 7.5 mg prescription for the next 14 days. Standard discharge and return precautions were provided. Patient understands, is agreeable to this plan, and has no additional questions or concerns upon discharge. This documentation was generated using [employer] system, please disregard any oddities of phrase or misspellings. Medical Records Medical records reviewed: Yes I reviewed the patient's medical records. Imaging Data Radiologic Study: Attestation: I personally reviewed and interpreted this imaging study as follows: Imaging: CT Scan Radiologist's impression: Exam(s) CT HEAD WO EXAM: CT HEAD WO CLINICAL HISTORY: weakness. TECHNIQUE: Imaging Protocol: Axial computed tomography images with coronal and sagittal reformatted images were created and reviewed COMPARISON: CT CT HEAD WO from 05/22/2021 FINDINGS: There are no skull fractures. There is no fluid in the visualized paranasal sinuses. There is no evidence of intracranial hemorrhage, mass effect, or shift of midline structures. There are no extra-axial fluid collections. The ventricles are not enlarged or shifted and there is no blood within the ventricular system nor within the basal cisterns. There is mild periventricular hypodensity again noted consistent with chronic small vessel disease. No acute territorial infarct noted. IMPRESSION: No acute intracranial findings on this noninfused CT scan of the brain. Lab Data Lab results reviewed: Yes I reviewed the patient's lab results. Labs: Laboratory Tests Range/Units 05/05/22 05/05/22 05/05/22 14:40 14:40 15:50 WBC (4.4-10.8) 10^3/uL 3.24 L RBC (3.93-5.22) 10^6/uL 2.60 L Hgb (11.2-15.7) g/dL 8.7 L Hct (36.0-46.0) % 25.8 L MCV (80-95) fL 99 H MCH (27.0-33.0) pg 33.5 H MCHC (32.0-36.0) % 33.7 RDW (11.7-14.6) % 13.3 Plt Count (130-400) 10^3/uL 85 L MPV (8.0-11.0) fL 9.4 Immature Gran % 0.3 Neutrophils % 49.7 Lymphocytes % 35.8 Monocytes % 11.1 Eosinophils % 2.5 Basophils % 0.6 Nucleated RBC % (0.0-0.3) % 0.0 Absolute Neutrophils (1.2-6.7) 10^3/uL 1.61 Absolute Lymphocytes (1.2-3.4) 10^3/uL 1.16 L Absolute Monocytes (0.1-0.8) 10^3/uL 0.36 Absolute Eosinophils (0.0-0.7) 10^3/uL 0.08 Absolute Basophils (0.0-0.2) 10^3/uL 0.02 Sodium (136-145) mmol/L 142 Potassium (3.5-5.1) mmol/L 4.4 Chloride (98-107) mmol/L 109 H Carbon Dioxide (21.0-32.0) mmol/L 25.9 Anion Gap (3-11) mmol/L 7.1 BUN (7-18) mg/dL 30 H Creatinine (0.55-1.02) mg/dL 1.5 H Est GFR (CKD-EPI 2020) (mL/min/1.73m2) 35.89 Glucose (74-106) mg/dL 84 Calcium (8.5-10.1) mg/dL 9.2 Magnesium (1.8-2.4) mg/dL 1.4 L Total Bilirubin (0.2-1.0) mg/dL 0.6 AST (15-37) U/L 10 L ALT (14-59) U/L 7 L Alkaline Phosphatase (46-116) U/L 32 L Total Protein (6.4-8.2) g/dL 5.8 L Albumin (3.4-5.0) g/dL 3.0 L Urine Color (Yellow) Yellow Urine Clarity (Clear) Clear Urine pH (5-8) 7.5 Ur Specific [place] (1.005-1.025) 1.020 Urine Protein (Negative) mg/dL Negative Urine Ketones (Negative) mg/dL Negative Urine Blood (Negative) Negative Urine Nitrite (Negative) Negative Urine Bilirubin (Negative) Negative Urine Urobilinogen (Up TO 0.2) EU/dL 4.0 H Ur Leukocyte Esterase (Negative) Negative Urine Glucose (Negative) mg/dL Negative HPI <Teddy Vitale NP - Last Filed: 05/06/22 10:00> General Mode of arrival: wheelchair. Date/Time Provider Initiated Documentation: 05/05/22 13:52. Limitations to Documentation: no limitations. Information obtained by: patient, family and RN notes reviewed. History of Present Illness 76 year old F presents to the emergency department with the chief complaint of weakness, described as moderate and similar to prior episodes, Quality is described as other (Reports old pain on left side), Patient started experiencing this week(s) (1) and it has been constant. No relieving factors improve symptom(s), Eating worsens symptoms (Low food intake) . Patient did receive the following treatments prior to arrival, other (Antibiotics previously started) Related Data Home Medications Medication Instructions Recorded Confirmed aspirin 81 mg tablet,delayed 81 mg PO DAILY 09/12/20 05/05/22 release (Adult Aspirin Regimen) atorvastatin 10 mg tablet 10 mg PO QHS 09/12/20 05/05/22 lisinopril 10 mg tablet 10 mg PO DAILY 09/12/20 05/05/22 calcium carbonate 600 mg-vitamin 2 cap PO DAILY 05/22/21 05/05/22 D3 10 mcg (400 unit) capsule cholecalciferol (vitamin D3) 50 50 mcg PO DAILY 05/22/21 05/05/22 mcg (2,000 unit) capsule pantoprazole 40 mg tablet,delayed 40 mg PO DAILY 07/17/21 05/05/22 release divalproex 250 mg tablet,delayed 250 mg PO BID 08/28/21 05/05/22 release divalproex 500 mg tablet,delayed 500 mg PO BID 08/28/21 05/05/22 release lidocaine 5 % topical cream 1 applic topical QID PRN pain in 11/27/21 05/05/22 low back and left leg #30 grams loratadine 10 mg tablet (Allergy 10 mg PO DAILY 11/27/21 05/05/22 Relief (loratadine)) memantine 10 mg tablet 10 mg PO BID #180 tabs 11/27/21 05/05/22 citalopram 20 mg tablet (Celexa) 10 mg PO DAILY 02/24/22 05/05/22 fluticasone propionate 50 1 spray intranasal BID PRN 02/24/22 05/05/22 mcg/actuation nasal spray,suspension (Allergy Relief (fluticasone)) folic acid 1 mg tablet 1 mg PO DAILY 02/24/22 05/05/22 mirtazapine 7.5 mg tablet 7.5 mg PO DAILY #14 tabs 05/05/22 Previous Rx's Medication Instructions Recorded lidocaine 5 % topical cream 1 applic topical QID PRN pain in 11/27/21 low back and left leg #30 grams memantine 10 mg tablet 10 mg PO BID #180 tabs 11/27/21 mirtazapine 7.5 mg tablet 7.5 mg PO DAILY #14 tabs 05/05/22 Allergies Allergy/AdvReac Type Severity Reaction Status Date / Time animal dander Allergy Verified 02/26/22 11:08 codeine Allergy Verified 02/26/22 11:08 grass pollen Allergy Verified 02/26/22 11:08 perfume Allergy Verified 02/26/22 11:08 General Stated Complaint: [employer] ASIA: 3 Review of Systems <Teddy Vitale NP - Last Filed: 05/06/22 10:00> Constitutional Constitutional: Denies chills, Denies fever(s), Denies headache(s), Reports lethargy, Reports malaise, Reports poor appetite and Reports weakness Eyes Eyes: Denies change in vision ENT Ears, Nose, Mouth, and Throat: Denies headache(s), Denies nasal congestion, Denies neck pain and Denies sore throat Cardiovascular Cardiovascular: Denies chest pain and Denies dyspnea Respiratory Respiratory: Denies cough and Denies dyspnea Gastrointestinal Gastrointestinal: Denies abdominal pain, Denies diarrhea and Denies nausea Genitourinary Genitourinary: Denies dysuria, Denies urinary hesitancy and Denies urinary urgency Musculoskeletal Musculoskeletal: Reports abnormal gait, Denies back pain, Reports muscle weakness, Denies neck pain and Denies numbness Integumentary/Breasts Skin/Breast: Denies erythema and Denies rash Neurologic Neurologic: Reports abnormal gait, Denies headache(s), Denies localized weakness, Denies numbness and Reports weakness PFSH <Teddy Vitale NP - Last Filed: 05/06/22 10:00> All Active Problems (Updated 05/05/22 @ 18:12 by WILSON Gomez) Decreased appetite (Acute) Weakness (Acute) Anemia (Chronic) Essential tremor (Acute) Lumbar stenosis (Acute) Frequent falls (Acute) Memory loss (Acute) Medical History Anemia Asthma Depressive disorder Diastasis recti GERD (gastroesophageal reflux disease) Hypertension Hypertriglyceridemia 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 Osteoarthritis Osteopenia Recurrent falls while walking Subarachnoid hemorrhage Type 2 diabetes mellitus Surgical History H/O bladder repair surgery H/O hernia repair H/O total knee replacement H/O tubal ligation History of esophagogastroduodenoscopy (EGD) Hx of colonoscopy Family History Father Alcohol abuse Heart disease Mother Cervical cancer Brother Prostate cancer Bladder cancer Kidney disease COPD (chronic obstructive pulmonary disease) Heart disease Mesothelioma Daughter Ovarian cancer Sister Alcohol abuse COPD (chronic obstructive pulmonary disease) Arthritis Kidney disease Osteoporosis Social History Smoking/Tobacco Use Status: Former Tobacco Use Smoking risk assessment performed?: Yes Alcohol Intake: never Details: OCCASTIONAL 1 PER YEAR Drug use: Never Substance use type: does not use Household members: spouse Number of Children: 2 current occupation: Homemaker Do you feel safe at home: Yes Do you feel safe in your relationship?: Yes Exam <Teddy Vitale NP - Last Filed: 05/06/22 10:00> Const General: cooperative, no acute distress and not ill appearing Orientation: alert and awake HENMT Head: normocephalic and atraumatic Ears: hearing grossly normal bilaterally Mouth: moist mucous membranes Resp Effort & Inspection: normal respiratory effort, able to speak in complete sentences and no respiratory distress Auscultation: clear to auscultation bilaterally Cardio Rate: regular rate Rhythm: regular rhythm Heart Sounds: S1 normal and S2 normal Skin General skin exam: no rashes or lesions noted Neuro General: patient alert, patient awake, moves all extremities and no focal motor deficits Course <Teddy Vitale NP - Last Filed: 05/06/22 10:00> Vital Signs Vital signs: Vital Signs Temperature 36.8 C 05/05/22 13:55 Pulse 56 L 05/05/22 13:55 Respiratory Rate 16 05/05/22 13:55 Blood Pressure 122/80 05/05/22 13:55 Pulse Oximetry 99 05/05/22 13:55 Temperature 36.8 C 05/05/22 13:55 Temperature Source Temporal Artery Scan 05/05/22 13:55 Pulse 49 L 05/05/22 14:31 Respiratory Rate 16 05/05/22 13:55 Respiratory Effort 05/05/22 14:33 Blood Pressure 92/75 L 05/05/22 14:31 Blood Pressure Mean 79 05/05/22 14:31 Blood Pressure Position Sitting 05/05/22 13:55 Pulse Oximetry 99 05/05/22 15:55 Oxygen Delivery Method Room Air 05/05/22 13:55 Oxygen Flow Rate 0 05/05/22 13:55 Lab/Test Results Lab/Test Results: Laboratory Tests Range/Units 05/05/22 05/05/22 14:40 14:40 WBC (4.4-10.8) 10^3/uL 3.24 L RBC (3.93-5.22) 10^6/uL 2.60 L Hgb (11.2-15.7) g/dL 8.7 L Hct (36.0-46.0) % 25.8 L MCV (80-95) fL 99 H MCH (27.0-33.0) pg 33.5 H MCHC (32.0-36.0) % 33.7 RDW (11.7-14.6) % 13.3 Plt Count (130-400) 10^3/uL 85 L MPV (8.0-11.0) fL 9.4 Immature Gran % 0.3 Neutrophils % 49.7 Lymphocytes % 35.8 Monocytes % 11.1 Eosinophils % 2.5 Basophils % 0.6 Nucleated RBC % (0.0-0.3) % 0.0 Absolute Neutrophils (1.2-6.7) 10^3/uL 1.61 Absolute Lymphocytes (1.2-3.4) 10^3/uL 1.16 L Absolute Monocytes (0.1-0.8) 10^3/uL 0.36 Absolute Eosinophils (0.0-0.7) 10^3/uL 0.08 Absolute Basophils (0.0-0.2) 10^3/uL 0.02 Sodium (136-145) mmol/L 142 Potassium (3.5-5.1) mmol/L 4.4 Chloride (98-107) mmol/L 109 H Carbon Dioxide (21.0-32.0) mmol/L 25.9 Anion Gap (3-11) mmol/L 7.1 BUN (7-18) mg/dL 30 H Creatinine (0.55-1.02) mg/dL 1.5 H Est GFR (CKD-EPI 2020) (mL/min/1.73m2) 35.89 Glucose (74-106) mg/dL 84 Calcium (8.5-10.1) mg/dL 9.2 Magnesium (1.8-2.4) mg/dL 1.4 L Total Bilirubin (0.2-1.0) mg/dL 0.6 AST (15-37) U/L 10 L ALT (14-59) U/L 7 L Alkaline Phosphatase (46-116) U/L 32 L Total Protein (6.4-8.2) g/dL 5.8 L Albumin (3.4-5.0) g/dL 3.0 L Sign Out <Teddy Vitale NP - Last Filed: 05/06/22 10:00> Sign Out Data: Sign Out Comment: Patient pending CT imaging results, urinalysis results and ambulatory trial prior to disposition. Last updated by Teddy Vitale NP at 05/05/22 16:08
== END 2022-05-05 18:35 | disposition home or self-care (01) ==
PROVIDERS: Nurse Practitioner Family; Emergency Provider Physician Assistant; PCP Family Medicine
DX: R53.1 Weakness (principal); D64.9 Anemia, unspecified; R63.0 Anorexia; M79.606 Pain in leg, unspecified; G89.29 Other chronic pain; E87.8 Other disorders of electrolyte and fluid balance, not elsewhere classified; E83.42 Hypomagnesemia; I10 Essential (primary) hypertension; E11.319 Type 2 diabetes mellitus with unspecified diabetic retinopathy without macular edema; J45.909 Unspecified asthma, uncomplicated; Z79.51 Long term (current) use of inhaled steroids; Z79.82 Long term (current) use of aspirin; Z98.51 Tubal ligation status
CPT/HCPCS: 80053; 96360; 99284; 70450; 81003; 83735; 85025

== ENCOUNTER → 2022-05-11 10:59 | Outpatient (BNVA) | payer MEDICARE, SELFPAY | PROVIDERS: PCP Family Medicine; Referring Provider Family Medicine; Visit Provider Psychiatry & Neurology Neurology | DX: Z87.820 Personal history of traumatic brain injury (principal); F32.A Depression, unspecified; D61.818 Other pancytopenia; I10 Essential (primary) hypertension; E11.319 Type 2 diabetes mellitus with unspecified diabetic retinopathy without macular edema; R41.3 Other amnesia; R29.6 Repeated falls; M48.061 Spinal stenosis, lumbar region without neurogenic claudication; G25.0 Essential tremor; R63.0 Anorexia | CPT/HCPCS: 99215 ==

== ENCOUNTER → 2022-08-10 13:24 | Outpatient (BNVA) | payer MEDICARE, SELFPAY | PROVIDERS: PCP Family Medicine; Referring Provider Family Medicine; Visit Provider Psychiatry & Neurology Neurology | DX: F03.93 Unspecified dementia, unspecified severity, with mood disturbance (principal); R29.6 Repeated falls; M48.061 Spinal stenosis, lumbar region without neurogenic claudication; G25.0 Essential tremor | CPT/HCPCS: 99214 ==

== ENCOUNTER → 2023-01-07 09:45 | Outpatient (BNVA) | payer MEDICARE, SELFPAY | PROVIDERS: PCP Family Medicine; Referring Provider Family Medicine; Visit Provider Psychiatry & Neurology Neurology | DX: R41.3 Other amnesia (principal); F39 Unspecified mood [affective] disorder; Z87.820 Personal history of traumatic brain injury; R29.6 Repeated falls; M48.061 Spinal stenosis, lumbar region without neurogenic claudication; G25.0 Essential tremor; E11.9 Type 2 diabetes mellitus without complications; I10 Essential (primary) hypertension | CPT/HCPCS: 99214 ==

== ENCOUNTER → 2023-07-08 13:11 | Outpatient (BNVA) | payer MEDICARE, SELFPAY | PROVIDERS: PCP Family Medicine; Referring Provider Family Medicine; Visit Provider Psychiatry & Neurology Neurology | DX: R41.3 Other amnesia (principal); R29.6 Repeated falls; M48.061 Spinal stenosis, lumbar region without neurogenic claudication; G25.0 Essential tremor | CPT/HCPCS: 99214 ==

== ENCOUNTER → 2024-01-31 13:04 | Outpatient (BNVA) | payer MEDICARE, SELFPAY | PROVIDERS: PCP Family Medicine; Visit Provider Psychiatry & Neurology Neurology | DX: G25.0 Essential tremor (principal); R41.3 Other amnesia; R29.6 Repeated falls; M48.061 Spinal stenosis, lumbar region without neurogenic claudication | CPT/HCPCS: 99214 ==

== ENCOUNTER 2024-10-13 07:58 | Day surgery (SDC) | payer MEDICARE, SELFPAY ==
[2024-10-13 08:35] VITALS: BP 129/63; PULSE 68; RESP 16; TEMP 36.2; O2SAT 99
[2024-10-13] MEDS: Tropicam./Phenyleph. (1/2.5%) 5 ML BTL OD ×3 (08:41→08:51)
--- NOTE | 2024-10-13 08:48 | W.ANESPRE ---
General Info Date of Service Date Performed: 10/13/24 Height: 5 ft 2 in Weight: 78.1 kg Body Mass Index (BMI): 31.4 Surgical Procedure: Operation Date: 10/13/24 09:55 Proposed Procedure Side Surgeon p Cataract Extraction with IOL Implant Left Jose Carlos Bassett MD Meds Allergies and Home Medications Allergies Allergy/AdvReac Type Severity Reaction Status Date / Time animal dander Allergy Other (See Verified 10/13/24 08:33 Comment) codeine Allergy Other (See Verified 10/13/24 08:33 Comment) grass pollen Allergy Other (See Verified 10/13/24 08:33 Comment) perfume Allergy Other (See Verified 10/13/24 08:33 Comment) Home Medication ?Medication ?Instructions ?Recorded aspirin 81 mg tablet,delayed 81 mg PO DAILY 09/12/20 release (Adult Aspirin Regimen) lisinopril 10 mg tablet 10 mg PO DAILY 09/12/20 calcium 600 mg (as 2 cap PO DAILY 05/22/21 carbonate)-vitamin D3 10 mcg (400 unit) capsule cholecalciferol (vitamin D3) 50 50 mcg PO DAILY 05/22/21 mcg (2,000 unit) capsule Saccharomyces boulardii 250 mg See Rx Instructions PO .COMPLEX 05/11/22 capsule (Daily Probiotic (S. boulardii)) vitamin B complex 1 cap PO DAILY 08/10/22 atorvastatin 10 mg tablet 40 mg PO QHS 01/31/24 bupropion HCl 300 mg 24 hr tablet, 300 mg PO QAM 01/31/24 extended release citalopram 20 mg tablet (Celexa) 40 mg PO DAILY 01/31/24 gabapentin 100 mg capsule 200 mg PO QHS 01/31/24 memantine 10 mg tablet 5 mg PO BID 01/31/24 Current Visit Medications: Current Medications Generic Name Dose Route Start Last Admin Trade Name Freq PRN Reason Stop Dose Admin Acetaminophen 1,000 mg 10/13/24 06:00 Acetaminophen 500 Mg Tab PO 11/12/24 05:59 Q4H PRN PRN Balanced Salt Solution 500 ml 10/13/24 06:00 Balanced Salt Soln.-Plus 500 Ml Bag OP 11/12/24 05:59 DIRECTED MICA Miscellaneous Medication 0 ml 10/13/24 06:00 Prednisolone 1%, Moxifloxacin 0.5%, Bromfenac 0.09% 5.6ml Btl OD 11/12/24 05:59 DIRECTED MICA Miscellaneous Medication 0 ml 10/13/24 06:00 10/13/24 08:46 Tropicam./Phenyleph. (1/2.5%) 5 Ml Btl OD 11/12/24 05:59 1 drp DIRECTED MICA Administration Tetracaine HCl 0 ml 10/13/24 06:00 Tetracaine 0.5% 4 Ml Btl OD 11/12/24 05:59 DIRECTED MICA PFSH Active Problems Active Problems: Problem Status Onset Code Cortical age-related cataract, left eye Acute H25.012 Nuclear age-related cataract, left eye Acute H25.12 Essential tremor Acute G25.0 Lumbar stenosis Acute M48.061 Frequent falls Acute R29.6 Memory loss Acute R41.3 Medical History Medical History Dementia Osteopenia Macular degeneration Osteoarthritis Hypertension Depressive disorder Hypertriglyceridemia Anemia GERD (gastroesophageal reflux disease) Asthma Diastasis recti Type 2 diabetes mellitus Recurrent falls while walking Subarachnoid hemorrhage 2020-f/u with neuro Mild non proliferative diabetic retinopathy Surgical History Surgical History H/O tubal ligation H/O hernia repair H/O bladder repair surgery History of esophagogastroduodenoscopy (EGD) Hx of colonoscopy H/O total knee replacement pt denies Tobacco Smoking/Tobacco Use Status: Former Tobacco Use Passive smoking exposure: No Alcohol Alcohol Intake: never Details: OCCASTIONAL 1 PER YEAR Substance Use Substance use: Never Substance use type: does not use Vital Signs and Lab Results Vital Signs Most Recent Vital Signs in EMR: Most Recent Vital Signs Temp Pulse Resp BP Pulse Ox 36.2 C L 68 16 129/63 99 10/13/24 08:35 10/13/24 08:35 10/13/24 08:35 10/13/24 08:35 10/13/24 08:35 Point of Care Results Point of Care Results: Finger Stick Blood Glucose 106 10/13/24 08:29 Imaging and Studies Imaging and Studies Study information below may be from another EMR and interpreted by another provider. Please see original notes in EMR for more complete details. EKG Summary: 05/22/21 Conclusion Sinus bradycardia...rate< 60 Low voltage, extremity and precordial leads...extremity<0.5mV, precordial<1.0mV Consider anterior infarct...Q >30mS in V2-V5 Anesthesia Assessment and Plan Anesthesia History Personal History: No History of Anesthesia Complications Family History: No Family History of Anesthesia Complications Exercise Tolerance Exercise Tolerance: Metabolic Equivalents<4 Pertinent Negatives Pertinent Negatives: No Major Cardiovascular Symptoms or Complaints and No Major Pulmonary Symptoms or Complaints Cardiac & Pulmonary Exam Cardiac Exam: Normal S1/S2 Heart Sounds Pulmonary Exam: Clear Bilateral Breath Sounds Implantable Cardiac Device Does patient have a Pacemaker or an ICD?: No Airway Exam Known Difficult Airway: No Mallampati Class: 3 Mouth Opening: Normal (> 3cm) Thyromental Distance: Greater than 3 cm Neck Range of Motion: Full ROM Neck Circumference: Normal Teeth Condition: Normal Dentition ASA Classification ASA Score: ASA 3 Emergency Case?: No NPO Status NPO Status: NPO Clears >2 hours, Solids >8 hours Anesthesia Plan Resuscitation Status: Full Code Anesthesia Technique: MAC Anesthesia Airway Planned: Natural Airway Monitors Used: Standard Monitors Preoperative Comments:: Phone consent obtained from Dax.
[2024-10-13 09:37] VITALS: BMI 31.4
[2024-10-13] MEDS: Lidocaine 1% Pres-Free 5 ML VIAL (09:52)
[2024-10-13] MEDS: Duovisc Viscoelastic System EACH 1 EACH (09:52)
[2024-10-13] MEDS: Moxifloxacin-PF 1 MG/ML VIAL (09:52)
[2024-10-13] MEDS: Phenylephrine/Lidocaine (15/10) MG/ML 1 ML VIAL (09:53)
[2024-10-13] MEDS: Balanced Salt Soln.-PLUS 500 ML BAG OP (09:53)
[2024-10-13] MEDS: Povidone-Iodine Ophth 30 ML BTL (09:53)
[2024-10-13] MEDS: Prednisolone 1%, Moxifloxacin 0.5%, Bromfenac 0.09% 5.6ML BTL OD (09:54)
[2024-10-13] MEDS: Tetracaine 0.5% 4 ML BTL OD (09:55)
--- NOTE | 2024-10-13 10:14 | W.PM.DSUDISC ---
Date of service: 10/13/24 Discharge Plan Disposition Patient Disposition: Home Discharge Details Attending Provider: Jose Carlos Bassett Primary Care Provider: Edward Francis Home Meds and New Rx's Prescriptions: No Action aspirin [Adult Aspirin Regimen] 81 mg tablet,delayed release (DR/EC) 81 mg PO DAILY Patient Comments: 529, pt unsure because sets up meds and is not here lisinopril 10 mg tablet 10 mg PO DAILY Patient Comments: thinks she took, sets up meds atorvastatin 10 mg tablet 40 mg PO QHS cholecalciferol (vitamin D3) 50 mcg (2,000 unit) capsule 50 mcg PO DAILY Patient Comments: pt thinks she took this am, unsure, spouse does meds Saccharomyces boulardii [Daily Probiotic (S. boulardii)] 250 mg capsule See Rx Instructions PO .COMPLEX Rx Instructions: 1 daily orally; unknown brand / dose vitamin B complex Capsule 1 cap PO DAILY Patient Comments: pt. thinks memantine 10 mg tablet 5 mg PO BID Patient Comments: pt. thinks she took, sets up meds gabapentin 100 mg capsule 200 mg PO QHS bupropion HCl 300 mg tablet extended release 24 hr 300 mg PO QAM Patient Comments: pt. thinks she took it this morning, set up by calcium carbonate-vitamin D3 600 mg-10 mcg (400 unit) capsule 2 cap PO DAILY citalopram [Celexa] 20 mg tablet 40 mg PO DAILY Patient Comments: pt.thinks she took, not sure, does meds Discharge Instructions Stand Alone Forms: [facility] Post-Op Cataract[facility] ([facility]) Discharge Orders Discharge Orders: Discharge Order (Routine); Ordered 10/13/24 Ordered By: Jose Carlos Bassett DS: Diagnosis Discharge Diagnosis (1) Cortical age-related cataract, left eye: Status: Resolved (2) Nuclear age-related cataract, left eye: Status: Resolved
--- NOTE | 2024-10-13 10:15 | ROE_ITS ---
Operative Note Operative Note PRE-OP DIAGNOSIS: Nuclear/cortical cataract, left eye POST-OP DIAGNOSIS: same PROCEDURE: Cataract extraction using phacoemulsification with intraocular lens implant, left eye SURGEON: Jose Carlos Bassett ANESTHESIA TYPE: Local By Surgeon and MAC Refer to Anesthesia Record PATHOLOGY: none sent COMPLICATIONS: None Patient was transported to: same day Patient's condition: stable Implants: Quan Clareon [id number] Indications: Progressive decreased vision due to cataract, left eye Procedure Description: CATARACT SURGERY OPERATIVE REPORT PREOPERATIVE DIAGNOSIS: Nuclear/cortical cataract, left eye POSTOPERATIVE DIAGNOSIS: Same OPERATION: Cataract extraction using phacoemulsification with posterior chamber intraocular lens implant, left eye. IOL: IOL [employer]/Model: Quan Clareon [id number] IOL Power: + 21.5 diopters IOL Serial Number: [id number] Optic Diameter: 6.0mm Haptic/Overall Diameter: 13.0mm PHACO INFO: Quan Centurion Vision System with OZil and Active Fluidics Cumulative Dispersed Energy (CDE): 6.64 seconds SURGEON: Jose Carlos Bassett MD, SANGITA ANESTHESIA: Monitored Anesthesia Care (MAC), with local sub-tenon's anesthetic infiltration COMPLICATIONS: None SPECIMENS: None INDICATIONS FOR PROCEDURE: The patient is a 79-year-old lady with history of diminished visual acuity in her left eye secondary to the development of nuclear/cortical cataract. She is significantly symptomatic that she desires cataract surgery in attempt to improve and maximize her vision. The option of cataract surgery was offered to the patient and she wished to proceed. See office notes for detailed information. PROCEDURE: The correct surgical eye was identified and marked as the left eye and the pupil was dilated in the preoperative area using mydriatics and cycloplegics. The dilated pupil size was 7.0 mm. The patient elected to proceed without oral sedation. The patient was brought to the operating room where cardiopulmonary monitoring was instituted and surgical time-out was performed, confirming the correct operative eye and IOL power. Topical anesthesia was administered and ophthalmic povidone-iodine 5% was instilled into the conjunctival fornices. The dennis-ocular area was prepped with Betadine 10% solution and draped in the usual sterile fashion for intraocular surgery, including an aperture drape. A Tegaderm transparent film dressing was cut in half and used to cover the lashes and lid margins. Care was taken to sequester the lashes and lid margins under the Tegaderm dressing. A lid speculum was placed between the lids of the operative eye and the Quan LuxOR Revalia operating microscope was maneuvered into position. Min scissors were then used to make a conjunctival buttonhole approximately 6mm posterior to the limbus in the inferonasal quadrant. Blunt dissection was carried out to expose bare sclera, and a blunt-tipped sub-tenon?s anesthesia cannula was introduced and passed posteriorly along the globe where non- preserved plain lidocaine was injected into posterior sub-Tenon?s space. A sideport knife was used to make a paracentesis port. Intraocular phenylephrine/lidocaine was injected into the anterior chamber. The anterior chamber was then filled with viscoelastic. A keratome knife was used construct a two-plane clear corneal tunnel extending 2.0mm into clear cornea. A flap was raised on the anterior capsule and capsulorhexis forceps were used to complete a continuous curvilinear capsulorhexis of 5.0 mm. The patient's eye moved constantly in an unpredictable fashion, had to be fixated with a second instrument to perform safe capsulorrhexis. Balanced salt solution was then used to perform cortical cleaving hydrodissection and nuclear hydrodelineation until the lens could be freely rotated within the capsular bag. The lens nucleus was then disassembled and removed within the capsular bag and iris plane using phacoemulsification. Residual cortical material was removed using the irrigation/aspiration handpiece. The posterior capsule was carefully polished to remove as much resi dual lens epithelial cells as safely possible. The capsular bag was then inflated and the anterior chamber deepened with viscoelastic. The lens implant described above was inserted into the capsular bag using the Quan Autonome Injector. A Kuglen hook was used to dial the IOL into position. Residual viscoelastic was then removed first from posterior to the IOL, then from the anterior chamber using the I/A handpiece. The lens implant was noted to center nicely within the capsular bag. The incisions were stromally hydrated, and the anterior chamber was reformed using BSS. Then 0.5cc of moxifloxacin 1.0mg/ml were injected into the capsular bag and anterior chamber. The incisions were checked with a Weck spear and found to be secure. Several drops of ophthalmic povidone-iodine 5% were then applied to the eye followed by two drops of combination steroid/NSAID/antibiotic solution. The drapes were removed and a clear plastic protective eye shield was placed over the eye. The patient was then returned to Same Day Surgery in stable condition. Date of Procedure: 10/13/24
[2024-10-13 10:18] VITALS: BP 114/61; PULSE 70; RESP 14; TEMP 36.6; O2SAT 99
--- NOTE | 2024-10-13 10:43 | W.ANESPOSTOP ---
Postoperative Evaluation Date, Time and Location Date Performed: 10/13/24 Time Performed: 10:18 Patient Location: Day Surgery Unit Vital Signs Most Recent Imported Vital Signs: Most Recent Vital Signs Temp Pulse Resp BP Pulse Ox 36.6 C 70 14 114/61 99 10/13/24 10:18 10/13/24 10:18 10/13/24 10:18 10/13/24 10:18 10/13/24 10:18 Pain Score Most Recent Pain Score: Most Recent Pain Score Pain Level 0 10/13/24 10:18 Assessment Mental Status: Awake (Alert & Oriented to Patient Baseline) Airway and Respiratory Function: Patent airway with normal (patient baseline) respiratory exam Cardiovascular Function: Hemodynamically Stable Hydration Status: Adequately Hydrated Nausea & Vomiting: No Nausea or Vomiting Pain: Pt. Denies Any Pain Peripheral Nerve Block: Patient did not receive a nerve block
== END 2024-10-13 10:33 | disposition home or self-care (01) ==
LOC: SUR 07:59
PROVIDERS: PCP Family Medicine; Visit Provider Ophthalmology
PROC: (CPT 66984; principal; 2024-10-13 09:45)
DX: H25.012 Cortical age-related cataract, left eye (principal); H25.12 Age-related nuclear cataract, left eye; K21.9 Gastro-esophageal reflux disease without esophagitis
CPT/HCPCS: 66984; 00123; V2632; J2003

== ENCOUNTER 2024-10-27 09:55 | Day surgery (SDC) | payer MEDICARE, SELFPAY ==
--- NOTE | 2024-10-27 06:45 | W.ANESPRE ---
General Info Date of Service Date Performed: 10/27/24 Height: 5 ft 2 in Weight: 78.1 kg Body Mass Index (BMI): 31.4 Surgical Procedure: Operation Date: 10/27/24 11:25 Proposed Procedure Side Surgeon p Cataract Extraction with IOL Implant Right Jose Carlos Bassett MD Meds Allergies and Home Medications Allergies Allergy/AdvReac Type Severity Reaction Status Date / Time animal dander Allergy Other (See Verified 10/27/24 10:30 Comment) codeine Allergy Other (See Verified 10/27/24 10:30 Comment) grass pollen Allergy Other (See Verified 10/27/24 10:30 Comment) perfume Allergy Other (See Verified 10/27/24 10:30 Comment) Home Medication ?Medication ?Instructions ?Recorded aspirin 81 mg tablet,delayed 81 mg PO DAILY 09/12/20 release (Adult Aspirin Regimen) lisinopril 10 mg tablet 10 mg PO DAILY 09/12/20 calcium 600 mg (as 2 cap PO DAILY 05/22/21 carbonate)-vitamin D3 10 mcg (400 unit) capsule cholecalciferol (vitamin D3) 50 50 mcg PO DAILY 05/22/21 mcg (2,000 unit) capsule Saccharomyces boulardii 250 mg See Rx Instructions PO .COMPLEX 05/11/22 capsule (Daily Probiotic (S. boulardii)) vitamin B complex 1 cap PO DAILY 08/10/22 atorvastatin 10 mg tablet 40 mg PO QHS 01/31/24 bupropion HCl 300 mg 24 hr tablet, 300 mg PO QAM 01/31/24 extended release citalopram 20 mg tablet (Celexa) 40 mg PO DAILY 01/31/24 gabapentin 100 mg capsule 200 mg PO QHS 01/31/24 memantine 10 mg tablet 5 mg PO BID 01/31/24 magnesium glycinate (LC-655) 655 mg PO DAILY 10/27/24 Current Visit Medications: Current Medications Generic Name Dose Route Start Last Admin Trade Name Freq PRN Reason Stop Dose Admin Acetaminophen 1,000 mg 10/27/24 06:00 Acetaminophen 500 Mg Tab PO 11/26/24 05:59 Q4H PRN PRN Balanced Salt Solution 500 ml 10/27/24 06:00 Balanced Salt Soln.-Plus 500 Ml Bag OP 11/26/24 05:59 DIRECTED [facility] Miscellaneous Medication 0 ml 10/27/24 06:00 Prednisolone 1%, Moxifloxacin 0.5%, Bromfenac 0.09% 5.6ml Btl OD 11/26/24 05:59 DIRECTED [facility] Miscellaneous Medication 0 ml 10/27/24 06:00 Tropicam./Phenyleph. (1/2.5%) 5 Ml Btl OD 11/26/24 05:59 DIRECTED [facility] Tetracaine HCl 0 ml 10/27/24 06:00 Tetracaine 0.5% 4 Ml Btl OD 11/26/24 05:59 DIRECTED [facility] PFSH Active Problems Active Problems: Problem Status Onset Code Cortical age-related cataract, right eye Acute H25.011 Nuclear age-related cataract, right eye Acute H25.11 Cortical age-related cataract, left eye Resolved H25.012 Nuclear age-related cataract, left eye Resolved H25.12 Essential tremor Acute G25.0 Lumbar stenosis Acute M48.061 Frequent falls Acute R29.6 Memory loss Acute R41.3 Medical History Medical History Dementia Osteopenia Macular degeneration Osteoarthritis Hypertension Depressive disorder Hypertriglyceridemia Anemia GERD (gastroesophageal reflux disease) Asthma Diastasis recti Type 2 diabetes mellitus Recurrent falls while walking Subarachnoid hemorrhage 2020-f/u with neuro Mild non proliferative diabetic retinopathy Surgical History Surgical History H/O tubal ligation H/O hernia repair H/O bladder repair surgery History of esophagogastroduodenoscopy (EGD) Hx of colonoscopy H/O total knee replacement pt denies Tobacco Smoking/Tobacco Use Status: Former Tobacco Use Passive smoking exposure: No Alcohol Alcohol Intake: never Details: OCCASTIONAL 1 PER YEAR Substance Use Substance use: Never Substance use type: does not use Vital Signs and Lab Results Vital Signs Most Recent Vital Signs in EMR: Temp Pulse Resp BP Pulse Ox 36.1 C L 61 16 104/89 98 10/27/24 10:34 10/27/24 10:34 10/27/24 10:34 10/27/24 10:34 10/27/24 10:34 Imaging and Studies Imaging and Studies Study information below may be from another EMR and interpreted by another provider. Please see original notes in EMR for more complete details. EKG Summary: 05/22/21 Conclusion Sinus bradycardia...rate< 60 Low voltage, extremity and precordial leads...extremity<0.5mV, precordial<1.0mV Consider anterior infarct...Q >30mS in V2-V5 Anesthesia Assessment and Plan Anesthesia History Personal History: No History of Anesthesia Complications Family History: No Family History of Anesthesia Complications Exercise Tolerance Exercise Tolerance: Metabolic Equivalents<4 Cardiac & Pulmonary Exam Cardiac Exam: Normal S1/S2 Heart Sounds Pulmonary Exam: Clear Bilateral Breath Sounds Implantable Cardiac Device Does patient have a Pacemaker or an ICD?: No Airway Exam Known Difficult Airway: No Mallampati Class: 3 Mouth Opening: Normal (> 3cm) Thyromental Distance: Greater than 3 cm Neck Range of Motion: Full ROM Neck Circumference: Normal Teeth Condition: Normal Dentition ASA Classification ASA Score: ASA 3 Emergency Case?: No NPO Status NPO Status: NPO Clears >2 hours, Solids >8 hours Anesthesia Plan Resuscitation Status: Full Code Anesthesia Technique: MAC Anesthesia Airway Planned: Natural Airway Monitors Used: Standard Monitors Preoperative Comments:: 79 yo female for repeat cataract. No MO previously.
[2024-10-27 10:34] VITALS: BP 104/89; PULSE 61; RESP 16; TEMP 36.1; O2SAT 98
[2024-10-27] MEDS: Tropicam./Phenyleph. (1/2.5%) 5 ML BTL OD ×3 (10:47→10:59)
[2024-10-27 11:00] VITALS: BMI 31.4
[2024-10-27] MEDS: Duovisc Viscoelastic System EACH 1 EACH (12:09)
[2024-10-27] MEDS: Lidocaine 1% Pres-Free 5 ML VIAL (12:10)
[2024-10-27] MEDS: Moxifloxacin-PF 1 MG/ML VIAL (12:10)
[2024-10-27] MEDS: Phenylephrine/Lidocaine (15/10) MG/ML 1 ML VIAL (12:11)
[2024-10-27] MEDS: Povidone-Iodine Ophth 30 ML BTL (12:12)
[2024-10-27] MEDS: Balanced Salt Soln.-PLUS 500 ML BAG OP (12:12)
[2024-10-27] MEDS: Prednisolone 1%, Moxifloxacin 0.5%, Bromfenac 0.09% 5.6ML BTL OD (12:13)
[2024-10-27] MEDS: Tetracaine 0.5% 4 ML BTL OD (12:14)
[2024-10-27 12:27] VITALS: BP 119/57; PULSE 68; RESP 16; TEMP 36.2; O2SAT 100
--- NOTE | 2024-10-27 12:27 | W.PM.DSUDISC ---
Date of service: 10/27/24 Discharge Plan Disposition Patient Disposition: Home Discharge Details Attending Provider: Jose Carlos Bassett Primary Care Provider: Edward Francis Home Meds and New Rx's Prescriptions: No Action aspirin [Adult Aspirin Regimen] 81 mg tablet,delayed release (DR/EC) 81 mg PO DAILY Patient Comments: 529, pt unsure because sets up meds and is not here lisinopril 10 mg tablet 10 mg PO DAILY Patient Comments: thinks she took, sets up meds atorvastatin 10 mg tablet 40 mg PO QHS cholecalciferol (vitamin D3) 50 mcg (2,000 unit) capsule 50 mcg PO DAILY Patient Comments: pt thinks she took this am, unsure, spouse does meds Saccharomyces boulardii [Daily Probiotic (S. boulardii)] 250 mg capsule See Rx Instructions PO .COMPLEX Rx Instructions: 1 daily orally; unknown brand / dose vitamin B complex Capsule 1 cap PO DAILY Patient Comments: pt. thinks memantine 10 mg tablet 5 mg PO BID Patient Comments: pt. thinks she took, sets up meds gabapentin 100 mg capsule 200 mg PO QHS bupropion HCl 300 mg tablet extended release 24 hr 300 mg PO QAM Patient Comments: pt. thinks she took it this morning, set up by calcium carbonate-vitamin D3 600 mg-10 mcg (400 unit) capsule 2 cap PO DAILY citalopram [Celexa] 20 mg tablet 40 mg PO DAILY Patient Comments: pt.thinks she took, not sure, does meds LC-655 118 mg magnesium capsule 655 mg PO DAILY Discharge Instructions Stand Alone Forms: [facility] Post-Op Jacque Murray ([facility]U) Discharge Orders Discharge Orders: Discharge Order (Routine); Ordered 10/27/24 Ordered By: Jose Carlos Bassett DS: Diagnosis Discharge Diagnosis (1) Cortical age-related cataract, right eye: Status: Resolved (2) Nuclear age-related cataract, right eye: Status: Resolved
--- NOTE | 2024-10-27 12:28 | ROE_ITS ---
Operative Note Operative Note PRE-OP DIAGNOSIS: Nuclear/cortical cataract, right eye POST-OP DIAGNOSIS: same PROCEDURE: Cataract extraction using phacoemulsification with intraocular lens implant, right eye SURGEON: Jose Carlos Bassett ANESTHESIA TYPE: Local By Surgeon and MAC Refer to Anesthesia Record ESTIMATED BLOOD LOSS: 0 PATHOLOGY: none sent COMPLICATIONS: None Patient was transported to: same day Patient's condition: stable Implants: Quan Clareon [id number] Indications: Progressive decreased vision due to cataract, right eye Procedure Description: CATARACT SURGERY OPERATIVE REPORT PREOPERATIVE DIAGNOSIS: Nuclear/cortical cataract, right eye POSTOPERATIVE DIAGNOSIS: Same OPERATION: Cataract extraction using phacoemulsification with posterior chamber intraocular lens implant, right eye. IOL: IOL [employer] Coordinator/Model: Quan Clareon [id number] IOL Power: + 20.5 diopters IOL Serial Number: [id number] Optic Diameter: 6.0mm Haptic/Overall Diameter: 13.0mm PHACO INFO: Quan Centurion Vision System with OZil and Active Fluidics Cumulative Dispersed Energy (CDE): 7.98 seconds SURGEON: Jose Carlos Bassett MD, SANGITA ANESTHESIA: Monitored Anesthesia Care (MAC), with local sub-tenon's anesthetic infiltration COMPLICATIONS: None SPECIMENS: None INDICATIONS FOR PROCEDURE: The patient is a 79-year-old lady with history of diminished visual acuity in both eyes secondary to the development of bilateral nuclear/cortical cataract. She has already undergone cataract surgery in the left eye and is doing well postoperatively. She now presents for cataract surgery in the right eye. See office notes for detailed information. PROCEDURE: The correct surgical eye was identified and marked as the right eye and the pupil was dilated in the preoperative area using mydriatics and cycloplegics. The dilated pupil size was 7.0 mm. The patient elected to proceed without oral sedation. The patient was brought to the operating room where cardiopulmonary monitoring was instituted and surgical time-out was performed, confirming the correct operative eye and IOL power. Topical anesthesia was administered and ophthalmic povidone-iodine 5% was instilled into the conjunctival fornices. The dennis-ocular area was prepped with Betadine 10% solution and draped in the usual sterile fashion for intraocular surgery, including an aperture drape. A Tegaderm transparent film dressing was cut in half and used to cover the lashes and lid margins. Care was taken to sequester the lashes and lid margins under the Tegaderm dressing. A lid speculum was placed between the lids of the operative eye and the Quan LuxOR Revalia operating microscope was maneuvered into position. Min scissors were then used to make a conjunctival buttonhole approximately 6mm posterior to the limbus in the inferonasal quadrant. Blunt dissection was carried out to expose bare sclera, and a blunt-tipped sub-tenon?s anesthesia cannula was introduced and passed posteriorly along the globe where non- preserved plain lidocaine was injected into posterior sub-Tenon?s space. A sideport knife was used to make a paracentesis port. Intraocular phenylephrine/lidocaine was injected into the anterior chamber. The anterior chamber was then filled with viscoelastic. A keratome knife was used to construct a two--plane clear corneal tunnel extending 2.0mm into clear cornea. A flap was raised on the anterior capsule and capsulorhexis forceps were used to complete a continuous curvilinear capsulorhexis of 5.0 mm. Balanced salt solution was then used to perform cortical cleaving hydrodissection and nuclear hydrodelineation until the lens could be freely rotated within the capsular bag. The lens nucleus was then disassembled and removed within the capsular bag and iris plane using phacoemulsification. Residual cortical material was removed using the I/A handpiece. The posterior capsule was carefully polished to remove as much residual lens epithelial cells as safely possible. The capsular bag was then inflated and the anterior chamber deepened with cohesive viscoelastic. The lens implant described above was inserted into the capsular bag using the Quan Autonome Injector. A Kuglen hook was used to dial the IOL into position. Residual viscoelastic was then removed first from posterior to the IOL, then from the anterior chamber using the I/A handpiece. The lens implant was noted to center nicely within the capsular bag. The incisions were stromally hydrated, and the anterior chamber was reformed using BSS. Then 0.5cc of moxifloxacin 1.0mg/ml were injected into the capsular bag and anterior chamber. The incisions were checked with a Weck spear and found to be secure. Several drops of ophthalmic povidone-iodine 5% were then applied to the eye followed by two drops of combination steroid/NSAID/antibiotic solution. The drapes were removed and a clear plastic protective eye shield was placed over the eye. The patient was then returned to Same Day Surgery in stable condition. Date of Procedure: 10/27/24
--- NOTE | 2024-10-27 12:42 | W.ANESPOSTOP ---
Postoperative Evaluation Date, Time and Location Date Performed: 10/27/24 Time Performed: 12:42 Patient Location: Day Surgery Unit Vital Signs Most Recent Imported Vital Signs: Most Recent Vital Signs Temp Pulse Resp BP Pulse Ox 36.2 C L 68 16 119/57 L 100 10/27/24 12:27 10/27/24 12:27 10/27/24 12:27 10/27/24 12:27 10/27/24 12:27 Pain Score Most Recent Pain Score: Most Recent Pain Score Pain Level 0 10/27/24 12:27 Assessment Mental Status: Awake (Alert & Oriented to Patient Baseline) Airway and Respiratory Function: Patent airway with normal (patient baseline) respiratory exam Cardiovascular Function: Hemodynamically Stable Hydration Status: Adequately Hydrated Nausea & Vomiting: No Nausea or Vomiting Pain: Pt. Denies Any Pain Peripheral Nerve Block: Patient did not receive a nerve block
== END 2024-10-27 12:54 | disposition home or self-care (01) ==
LOC: SUR 09:56
PROVIDERS: PCP Family Medicine; Visit Provider Ophthalmology
PROC: (CPT 66984; principal; 2024-10-27 11:15)
DX: H25.011 Cortical age-related cataract, right eye (principal); H25.11 Age-related nuclear cataract, right eye; Z98.42 Cataract extraction status, left eye
CPT/HCPCS: 66984; 00123; V2632; J2003